=== PATIENT | male | born 1985 | race Caucasian/White ===

== ENCOUNTER 2019-01-28 04:50 | Emergency (ER) | payer OTHER ==
[2019-01-28 04:59] VITALS: BP 152/111
[2019-01-28] MEDS ORDERED: Heparin Sodium 5,000 Units/ML Vial IVPUSH ONE (05:05)
[2019-01-28] MEDS ORDERED: HYDROmorphone 1 MG/ML Syringe IVPUSH ONE ×2 (05:07→05:46)
[2019-01-28] MEDS ORDERED: Heparin Sodium 5,000 Units/ML Vial ONE (05:08)
[2019-01-28] MEDS ORDERED: Ondansetron 4 MG/2 ML SDV IVPUSH ONE (05:14)
--- NOTE | 2019-01-28 05:14 | EDM.PDOC ---
ED HPI GENERAL MEDICAL PROBLEM - General Chief Complaint: Chest Pain Stated Complaint: CHEST PAIN Time Seen by Provider: 01/28/19 05:01 Source of Information: Reports: Patient, Family (), RN Notes Reviewed History Limitations: Reports: No Limitations - History of Present Illness INITIAL COMMENTS - FREE TEXT/NARRATIVE: The patient states that he was woken up around 04:00 this morning with severe sharp/stabbing pain felt across his entire chest and down his right arm to about the elbow. The pain is made worse if he tries to breathe, but is still present if he doesn't breathe. Once in the ED, the patient stated that the pain was developing in his back, as well. No recent lower extremity edema. No prior similar symptoms. The patient did not take any [id number] or home remedies to treat his symptoms. The patient's PCP is Dr. Brandon Durham. Bilateral Chest Pain Score (Numeric/FACES): 9 - Related Data Allergies Allergy/AdvReac Type Severity Reaction Status Date / Time No Known Allergies Allergy Verified 01/28/19 04:56 Home Meds: Home Meds Levothyroxine 175 mcg PO ACBRK 05/03/16 [History] Past Medical History Gastrointestinal History: Reports: GERD, Hiatal Hernia Endocrine/Metabolic History: Reports: Hypothyroidism, Obesity/BMI 30+ - Infectious Disease History Infectious Disease History: Reports: Chicken Pox - Past Surgical History HEENT Surgical History: Reports: Oral Surgery (wisdom teeth extraction) GI Surgical History: Reports: EGD, Hernia, Abdominal (umbilical, as an infant) Musculoskeletal Surgical History: Reports: Other (See Below) (Right third finger repair) Social & Family History - Tobacco Use Smoking Status *Q: Current Every Day Smoker Years of Tobacco use: 20 Packs/Tins Daily: 1 Packs/Tins Daily Comment: Down from 1.5 ppd - Caffeine Use Caffeine Use: Reports: Energy Drinks - Alcohol Use Alcohol Use History: Yes Days Per Week of Alcohol Use: 6 Number of Drinks Per Day: 2 Total Drinks Per Week: 12 - Recreational Drug Use Recreational Drug Use: No - Living Situation & Occupation Living situation: Reports: , with Spouse Occupation: Employed (Owns [employer] business) ED ROS GENERAL - Review of Systems Review Of Systems: ROS reveals no pertinent complaints other than HPI. ED EXAM, GENERAL - Physical Exam Exam: See Below Exam Limited By: No Limitations General Appearance: Alert, WD/WN, Moderate Distress (appears dusky, very anxious , in pain) Eye Exam: Bilateral Eye: EOMI, Nystagmus Ears: Normal External Exam, Hearing Grossly Normal Nose: Normal Inspection Throat/Mouth: Normal Inspection, Normal Lips, Normal Voice, No Airway Compromise Head: Atraumatic, Normocephalic Neck: Normal Inspection, Full Range of Motion Respiratory/Chest: No Respiratory Distress, Lungs Clear, Normal Breath Sounds, No Accessory Muscle Use, Other (Anterior chest is tender, although the patient cannot say whether it is reproducible pain) Cardiovascular: Normal Peripheral Pulses, No Gallop, No JVD, No Murmur, No Rub, Tachycardia, Irregularly Irregular Peripheral Pulses: 4+: Radial (L), Radial (R) GI/Abdominal: Normal Bowel Sounds, Soft, Non-Tender, No Organomegaly, No Distention, No Abnormal Bruit, No Mass, Other (Obese) (Male) Exam: Deferred Rectal (Males) Exam: Deferred Back Exam: Normal Inspection, Full Range of Motion, NT Extremities: Normal Inspection, Normal Range of Motion, Normal Capillary Refill Neurological: Alert, Oriented, Normal Cognition, No Motor/Sensory Deficits Psychiatric: Anxious Skin Exam: Warm, Dry, Intact, No Rash, Other (dusky appearance) EKG INTERPRETATION EKG Date: 01/28/19 Time: 04:56 Rhythm: Other (Sinus tachycardia with several PVCs) Rate (Beats/Min): 109 [place]: Other (Posterior axis - either far RAD or far LAD) P-Wave: Enlarged (+PAVEL, +/- KATERYNA) QRS: Other (Late transition) ST-T: Normal QT: Prolonged (QTc 502 ms) Comparison: No Change (08/05/2018) Course - Vital Signs Last Recorded V/S: Last Vital Signs Temp 36.3 C 01/28/19 04:57 Pulse 102 H 01/28/19 04:57 Resp 19 01/28/19 04:57 BP 152/111 H 01/28/19 04:57 Pulse Ox 88 L 01/28/19 05:20 - Orders/Labs/Meds Orders: Active Orders 24 hr Category Date Time Status EKG Documentation Completion [RC] STAT Care 01/28/19 05:05 Active Oxygen Therapy [RC] ASDIRECTED Care 01/28/19 05:57 Active Chest 1V-Tube Placement Chk NC [CR] Routine Exams 01/28/19 06:00 Taken Chest Abdomen Pelvis w Cont [CT] Stat Exams 01/28/19 05:13 Taken Heparin Sodium/D5W [Heparin 25,000 Units in D5W 500 ML] Med 01/28/19 05:15 Active 25,000 units in 500 ml IV TITRATE Sodium Chloride 0.9% [Normal Saline] 1,000 ml Med 01/28/19 05:15 Active IV ASDIRECTED NG [Nasogastric Orogastric Tube Insertion] [OM.PC] Oth 01/28/19 06:04 Ordered Routine Medication Orders Heparin Sodium/Dextrose (Heparin 25,000 Units In D5w 500 Ml) 25,000 units in 500 mls @ 26 mls/hr IV TITRATE ANALIA; Protocol Sodium Chloride (Normal Saline) 1,000 mls @ 150 mls/hr IV ASDIRECTED ANALIA Last Admin: 01/28/19 05:12 Dose: 150 mls/hr Labs: Laboratory Tests 01/28/19 01/28/19 01/28/19 Range/Units 05:00 05:00 05:00 WBC 11.61 H (4.23-9.07) K/mm3 RBC 5.97 (4.63-6.08) M/mm3 Hgb 19.2 H (13.7-17.5) gm/L Hct 58.0 H (40.1-51.0) % MCV 97.2 H (79.0-92.2) fl MCH 32.2 (25.7-32.2) pg MCHC 33.1 (32.2-35.5) g/dl RDW Std Deviation 52.1 H (35.1-43.9) fL Plt Count 179 (163-337) K/mm3 MPV 11.7 (9.4-12.3) fl Neutrophils % (Manual) 72 H (40-60) % Band Neutrophils % 0 (0-10) % Lymphocytes % (Manual) 25 (20-40) % Atypical Lymphs % 0 % Immat Monocytes % (Man) 0 Monocytes % (Manual) 2 (2-10) % Eosinophils % (Manual) 1 (0.8-7.0) % Basophils % (Manual) 0 L (0.2-1.2) Metamyelocytes % 0 Myelocytes % 0 Promyelocytes % 0 Blast Cells % 0 Plasma Cell % (Manual) 0 Nucleated RBCs 0.0 % Platelet Estimate Adequate RBC Morph Comment Normal PT 10.3 (9.5-12.1) SECONDS INR 0.94 APTT 31 (24-31) SECONDS Puncture Site ABG pH (7.35-7.45) ABG pCO2 (35.0-45.0) mmHg ABG pO2 (80.0-100.0) mmHg ABG HCO3 (22.0-26.0) meq/L ABG O2 Saturation (96.0-97.0) % ABG Base Excess (-2-2.0) Aba Test A-a Gradient mmHg O2 Delivery Device FiO2 (21.00-100.00) % Sodium 141 (136-145) mEq/L Potassium 4.2 (3.5-5.1) mEq/L Chloride 103 (98-107) mEq/L Carbon Dioxide 32 (21-32) mEq/L Anion Gap 10.2 (5-15) BUN 10 (7-18) mg/dL Creatinine 1.0 (0.7-1.3) mg/dL Est Cr Clr Drug Dosing 103.10 mL/min Estimated GFR (MDRD) > 60 (>60) mL/min BUN/Creatinine Ratio 10.0 L (14-18) Glucose 96 (74-106) mg/dL Calcium 9.5 (8.5-10.1) mg/dL Total Bilirubin 0.7 (0.2-1.0) mg/dL AST 24 (15-37) U/L ALT 35 (16-63) U/L Alkaline Phosphatase 74 (46-116) U/L Troponin I < 0.017 (0.00-0.056) ng/mL Total Protein 8.4 H (6.4-8.2) g/dl Albumin 4.4 (3.4-5.0) g/dl Globulin 4.0 gm/dL Albumin/Globulin Ratio 1.1 (1-2) 01/28/19 Range/Units 05:18 WBC (4.23-9.07) K/mm3 RBC (4.63-6.08) M/mm3 Hgb (13.7-17.5) gm/L Hct (40.1-51.0) % MCV (79.0-92.2) fl MCH (25.7-32.2) pg MCHC (32.2-35.5) g/dl RDW Std Deviation (35.1-43.9) fL Plt Count (163-337) K/mm3 MPV (9.4-12.3) fl Neutrophils % (Manual) (40-60) % Band Neutrophils % (0-10) % Lymphocytes % (Manual) (20-40) % Atypical Lymphs % % Immat Monocytes % (Man) Monocytes % (Manual) (2-10) % Eosinophils % (Manual) (0.8-7.0) % Basophils % (Manual) (0.2-1.2) Metamyelocytes % Myelocytes % Promyelocytes % Blast Cells % Plasma Cell % (Manual) Nucleated RBCs % Platelet Estimate RBC Morph Comment PT (9.5-12.1) SECONDS INR APTT (24-31) SECONDS Puncture Site Rt radial ABG pH 7.32 L (7.35-7.45) ABG pCO2 55.9 H (35.0-45.0) mmHg ABG pO2 40.0 L (80.0-100.0) mmHg ABG HCO3 27.9 H (22.0-26.0) meq/L ABG O2 Saturation 68.5 L (96.0-97.0) % ABG Base Excess 0.6 (-2-2.0) Aba Test Positive A-a Gradient 24 mmHg O2 Delivery Device Room air FiO2 21.00 (21.00-100.00) % Sodium (136-145) mEq/L Potassium (3.5-5.1) mEq/L Chloride (98-107) mEq/L Carbon Dioxide (21-32) mEq/L Anion Gap (5-15) BUN (7-18) mg/dL Creatinine (0.7-1.3) mg/dL Est Cr Clr Drug Dosing mL/min Estimated GFR (MDRD) (>60) mL/min BUN/Creatinine Ratio (14-18) Glucose (74-106) mg/dL Calcium (8.5-10.1) mg/dL Total Bilirubin (0.2-1.0) mg/dL AST (15-37) U/L ALT (16-63) U/L Alkaline Phosphatase (46-116) U/L Troponin I (0.00-0.056) ng/mL Total Protein (6.4-8.2) g/dl Albumin (3.4-5.0) g/dl Globulin gm/dL Albumin/Globulin Ratio (1-2) Meds: Medications Generic Name Dose Route Start Last Admin Trade Name Freq PRN Reason Stop Dose Admin Heparin Sodium/Dextrose 25,000 units in 500 mls @ 26 mls/hr 01/28/19 05:15 Heparin 25,000 Units In D5w 500 Ml IV TITRATE ANALIA Protocol 1,300 UNITS/HR Sodium Chloride 1,000 mls @ 150 mls/hr 01/28/19 05:15 01/28/19 05:12 Normal Saline IV 150 mls/hr ASDIRECTED ANALIA Administration Discontinued Medications Generic Name Dose Route Start Last Admin Trade Name Freq PRN Reason Stop Dose Admin Heparin Sodium (Porcine) 5,000 units 01/28/19 05:05 Heparin Sodium IVPUSH 01/28/19 05:06 ONETIME ONE Heparin Sodium (Porcine) Confirm 01/28/19 05:08 01/28/19 05:13 Heparin Sodium Administered 01/28/19 05:09 Not Given Dose 5,000 units .ROUTE .STK-MED ONE Hydromorphone HCl 1 mg 01/28/19 05:07 01/28/19 05:11 Dilaudid IVPUSH 01/28/19 05:08 1 mg ONETIME ONE Administration Hydromorphone HCl 1 mg 01/28/19 05:46 01/28/19 05:50 Dilaudid IVPUSH 01/28/19 05:47 1 mg ONETIME ONE Administration Ondansetron HCl 4 mg 01/28/19 05:14 Zofran IVPUSH 01/28/19 05:15 ONETIME ONE - Re-Assessments/Exams Free Text/Narrative Re-Assessment/Exam: 01/28/19 05:14 As per the HPI, the patient is complaining of pain across his chest and down his right upper extremity to about the elbow. He looks dusky, and his oxygen saturation is decreased. He has numerous PVCs on his ECG, although no ischemic changes. My biggest concern is that the patient is suffering from a pulmonary embolus, and I therefore ordered an empiric heparin bolus + drip, however, the patient then mentioned that the pain is going through to his back, raising the concern of an aortic dissection. I therefore instructed Brenna WALLACE to not start the heparin until we get the CT results, and I spoke to the quality assurance/r&d lab technician Chiki to let him know that I want to rule out not only a PE but an aortic dissection as well. Blood work has been ordered. In the meantime, the patient will receive Dilaudid, Zofran, and IV fluid. We will check flight availability. 01/28/19 05:35 Preliminary review of the CT scan indicates that the patient may have a large right paraesophageal herniation, with a sizable portion of the patient's stomach in the right chest. Notified that the helicopter is not able to fly to either [place] or [place]. 01/28/19 05:[address] Kun Mata, surgeon denture contour wire specialist, at 05:38. He will come to the ED to evaluate the patient. 01/28/19 05:42 The ABG represents an acute on chronic respiratory acidosis with hypoxemia. 01/28/19 06:06 Dr. 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 He recommended transfer to [place] for surgical repair. The above recommendation was discussed with the patient and his . They prefer [facility]. CT images were pushed to [facility] at 05:57. Case discussed with Karlee at [facility] at 05:58. Case then discussed with Dr. Mendoza, general surgeon at [facility], at 06: 02. She recommended that we place an NG tube. She agreed to the transfer of the patient to their ED. Karlee notified Dr. Bolivar, [facility] Emergency Physician, of the transfer, however, Dr. Mendoza will be the accepting physician. The patient will be transported by ground ambulance. 01/28/19 06:25 CT angiogram of the chest is read by [facility] as: 1. No thoracic aortic aneurysm or evidence of acute aortic pathology. No evidence of pulmonary embolism. 2. New multiple small nodules throughout both lungs. Differential considerations include atypical pneumonia and less likely neoplastic process such as metastases or lymphoma. Follow-up suggested. 3. Large hiatal hernia. CT angiogram of the abdomen and pelvis is read by [facility] as: 1. No acute findings. No abdominal aortic aneurysm or evidence of acute aortic pathology. 2. Hepatic steatosis. Post-NG tube placement portable chest radiograph appears to demonstrate the tip of the NG tube within the esophagus, not likely in the herniated stomach. The cardiac silhouette is within normal limits. No pulmonary vascular congestion. No pleural effusions. No focal infiltrate. No pneumothorax. Large right hiatal hernia noted in the right chest. Formal read per the Radiologist pending. Based on the chest x-ray results, I asked Brenna WALLACE to advance the NG tube a few inches. Departure - Departure Time of Disposition: 06:10 Disposition: DC/Tfer to [facility] 02 Reason for Transfer *Q: Other Condition: Fair Clinical Impression: Strangulated paraesophageal hernia Referrals: Brandon Durham MD [Primary Care Provider] - - My Orders Last 24 Hours: My Active Orders 01/28/19 05:05 EKG Documentation Completion [RC] STAT 01/28/19 05:13 Chest Abdomen Pelvis w Cont [CT] Stat 01/28/19 05:15 Heparin Sodium/D5W [Heparin 25,000 Units in D5W 500 ML] 25,000 units in 500 ml IV TITRATE Sodium Chloride 0.9% [Normal Saline] 1,000 ml IV ASDIRECTED 01/28/19 05:57 Oxygen Therapy [RC] ASDIRECTED 01/28/19 06:00 Chest 1V-Tube Placement Chk NC [CR] Routine 01/28/19 06:04 NG [Nasogastric Orogastric Tube Insertion] [OM.PC] Routine - Assessment/Plan Last 24 Hours: My Active Orders 01/28/19 05:05 EKG Documentation Completion [RC] STAT 01/28/19 05:13 Chest Abdomen Pelvis w Cont [CT] Stat 01/28/19 05:15 Heparin Sodium/D5W [Heparin 25,000 Units in D5W 500 ML] 25,000 units in 500 ml IV TITRATE Sodium Chloride 0.9% [Normal Saline] 1,000 ml IV ASDIRECTED 01/28/19 05:57 Oxygen Therapy [RC] ASDIRECTED 01/28/19 06:00 Chest 1V-Tube Placement Chk NC [CR] Routine 01/28/19 06:04 NG [Nasogastric Orogastric Tube Insertion] [OM.PC] Routine
[2019-01-28] MEDS ORDERED: Sodium Chloride 0.9% 1,000 ML IV SCH (05:15)
[2019-01-28] MEDS ORDERED: Heparin Sodium/D5W 25,000 UNITS/500 ML BAG IV SCH (05:15)
--- NOTE | 2019-01-29 13:29 | CR ---
Chest: Frontal view of the chest was obtained. Comparison: Prior chest CT performed earlier on the same day (5:23 AM). Previous chest x-ray of 05/03/16 is also available. Vague nodularity is seen within both sides of the chest which is more noticeable on recent chest CT and has been described on previous chest CT report. Large hiatal hernia is seen which is felt compatible with diaphragmatic hernia. Nasogastric tube is seen with the tip located within the mediastinum most likely within the intrathoracic stomach. Heart size is slightly generous but is felt to be accentuated from technique. Impression: 1. Tip of nasogastric tube within the mediastinum likely within the intrathoracic stomach. 2. Slight nodularity within both sides of the chest better seen and described on previous chest CT. Diagnostic code #3
--- NOTE | 2019-01-29 13:29 | CT ---
CT chest Technique: Multiple axial sections through the chest were obtained. Intravenous contrast was utilized. Comparison: Prior chest CT study of 08/05/18. Findings: Visualized pulmonary arteries show no filling defects to indicate pulmonary embolism. Aorta shows no aneurysm or dissection. No pericardial thickening is seen. Mediastinum and hilar regions show small normal-appearing lymph nodes. No axillary adenopathy is seen. Numerous nodules are identified throughout both lungs which show no calcifications. Diaphragmatic hernia seen posteriorly which contains stomach. This causes some compressive atelectasis within the right base. Bone window settings were reviewed which shows no acute osseous abnormality. Impression: 1. Numerous small nodules within both lungs. These findings are an interval change from previous exam. Differential includes atypical pneumonia as well as metastasis and lymphoma. 2. Diaphragmatic hernia is seen posteriorly containing stomach. 3. No additional abnormality is identified. Diagnostic code #9 I agree with preliminary report issued by [facility] ([facility] report finalized on 01/28/19, 7:[address] abdomen and pelvis Technique: Multiple axial sections were obtained from above the dome of the diaphragm inferiorly through the pubic symphysis. Intravenous contrast was utilized. No oral contrast has been given. Findings: Aorta shows no aneurysm or dissection. No focal stenosis is seen. Renal arteries appear within normal limits. Celiac axis and superior mesenteric arteries as well as inferior mesenteric arteries appear unremarkable. Incidental note of 2 right sided renal arteries. Common iliac arteries as well as internal and external iliac arteries appear within normal limits. Liver shows fatty infiltration without focal abnormality. Spleen appears within normal limits. Adrenal glands show no nodule. Pancreas is within normal limits. Gallbladder contains no calcified gallstones. No retroperitoneal adenopathy or mesenteric abnormalities are seen. No pelvic mass or adenopathy is seen. No free fluid or inflammatory change is seen. Minimal sigmoid diverticuli are seen. Appendix is seen and is normal in size. Bone window settings were reviewed which show no acute osseous abnormality. Impression: 1. Fatty infiltration within the liver. 2. No vascular abnormality is appreciated within the aorta or branch vessels. 3. Other incidental findings. Nothing acute is seen. Diagnostic code #2 I agree with preliminary report issued by [facility] ([facility] report finalized on 01/28/19, 7:09 AM Central Time.
== END 2019-01-28 06:51 ==
LOC: JD.ED 04:50
DX: K44.0 Diaphragmatic hernia with obstruction, without gangrene (principal); F17.210 Nicotine dependence, cigarettes, uncomplicated; Z79.899 Other long term (current) drug therapy
CPT/HCPCS: 36415; 36600; 71260; 74177; 80053; 82803; 84484; 85007; 85027; 85610; 85730; 93005; 96361; 96374; 96376; 99285; J1170; J7040; 93010; 94762

== ENCOUNTER 2021-02-20 19:20 | Inpatient (IN) | payer OTHER ==
[2021-02-20] MEDS ORDERED: Sodium Chloride 0.9% 1,000 ML IV ONE ×2 (20:18→23:40)
[2021-02-20] MEDS ORDERED: Sodium Chloride 0.9% 10 ML Syringe FLUSH PRN (20:18)
--- NOTE | 2021-02-20 20:28 | EDM.PDOC ---
<Omar Vizcaino - Last Filed: 02/21/21 07:02> ED HPI GENERAL MEDICAL PROBLEM - General Chief Complaint: Respiratory Problem Stated Complaint: headache chills chest tightness Time Seen by Provider: 02/20/21 19:56 - Related Data Allergies Allergy/AdvReac Type Severity Reaction Status Date / Time cat dander Allergy Itching Verified 02/21/21 10:44 Home Meds: Home Meds Pantoprazole Sodium [Protonix] 20 mg PO DAILY 02/20/21 [History] buPROPion [buPROPion XL] 150 mg PO DAILY 02/20/21 [History] FLUoxetine HCl [Fluoxetine HCl] 20 mg PO DAILY 02/21/21 [History] Acetaminophen [Tylenol] 650 mg PO Q4H PRN #20 tablet 02/23/21 [Rx] Acetaminophen/oxyCODONE [Percocet 325-5 MG] 1 tab PO Q6H PRN #20 tablet 02/23/21 [Rx] Azithromycin 500 mg PO DAILY #1 tablet 02/23/21 [Rx] Gabapentin [Neurontin] 100 mg PO BID #30 cap 02/23/21 [Rx] Levothyroxine 175 mcg PO ACBREAKFAST #20 tab 02/23/21 [Rx] Magnesium Oxide 400 mg PO DAILY #3 tablet 02/23/21 [Rx] Nicotine [Nicotine Patch] 21 mg TD DAILY #28 patch 02/23/21 [Rx] cephALEXin [Keflex] 500 mg PO Q8H #7 cap 02/23/21 [Rx] valACYclovir [Valtrex] 1,000 mg PO TID #15 tab 02/23/21 [Rx] Course - Re-Assessments/Exams Free Text/Narrative Re-Assessment/Exam: I was called to see the patient as he was having difficulty with just generalized aches and pains especially in his back. I did discuss this with the patient he thinks Tylenol works fine for him. At this point it looks like we have some hospital beds are staffing issue has been resolved so we can keep the patient here. I have updated the patient with this and he is pleased to be able to stay here. Patient's case was also discussed with Dr. Mendoza who is happy to accept the patient. 02/21/21 07:02 Departure - Departure Time of Disposition: 07:05 Disposition: Admitted As Inpatient 64 Clinical Impression: Hypomagnesemia Community acquired pneumonia Qualifiers: Laterality: left Lung location: lower lobe of lung Qualified Code(s): J18.9 - Pneumonia, unspecified organism - Discharge Information <John Simon - Last Filed: 02/26/21 08:06> ED HPI GENERAL MEDICAL PROBLEM - General Source of Information: Reports: Patient History Limitations: Reports: No Limitations - History of Present Illness INITIAL COMMENTS - FREE TEXT/NARRATIVE: Mr. López is a very pleasant 36-year-old gentleman who now presents to the ED after he developed generalized body aches, including his chest, with chills, a headache, and dyspnea around 17:00 this evening. He states that he coughed for about 15 to 20 minutes earlier today, but no other symptoms, including fever, nausea, vomiting, constipation, diarrhea, or urinary symptoms. 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 He underwent surgery, and had significant complications, including ARDS. He states that he was in a medically-induced coma for about a week. Here in the ED tonight, the patient is found to be tachycardic at 110 bpm. He is afebrile, although feels warm, and requested additional warm blankets, therefore is likely developing a fever. He was hypoxemic at 87% on room air, up to 93% on 2 L of oxygen per nasal cannula. He appears to be uncomfortable, although was not in acute distress. Prior to today, the patient denies having a recent fever, chills, sore throat, ear pain, nasal or sinus congestion, cough, dyspnea, chest pain, palpitations, nausea, vomiting, constipation, diarrhea, abdominal pain, urinary symptoms, recent weight gain or weight loss, recent bloody bowel movements or black bowel movements, recent joint aches, headaches, or rashes. The patient does not believe that he acquired COVID-19 during this pandemic, although he has not been vaccinated for it, either. The patient's PCP is Dr. Brandon Durham. Treatments SHERIFFS OFFICER: Reports: NSAIDS Upper Chest Pain Score (Numeric/FACES): 7 Past Medical History HEENT History: Reports: Allergic Rhinitis Respiratory History: Reports: Sleep Apnea (nightly CPAP) Gastrointestinal History: Reports: GERD, Hiatal Hernia Endocrine/Metabolic History: Reports: Hypothyroidism, Obesity/BMI 30+ - Infectious Disease History Infectious Disease History: Reports: Chicken Pox - Past Surgical History HEENT Surgical History: Reports: Naso-Sinus Surgery (repair of deviated septum), Oral Surgery (dental extractions) GI Surgical History: Reports: Colonoscopy (x 2 or 3), EGD (x 3 or 4), Hernia, Abdominal (umbilical, as an infant), Other (See Below) (Repair of paraesophageal hernia Jan 2019) Musculoskeletal Surgical History: Reports: Other (See Below) (Rt 3rd finger repair) Social & Family History - Tobacco Use Tobacco Use Status *Q: Current Every Day Tobacco User Years of Tobacco use: 22 Packs/Tins Daily: 1 Packs/Tins Daily Comment: Down from 1.5 ppd - Caffeine Use Caffeine Use: Reports: Energy Drinks - Alcohol Use Alcohol Use History: Yes Alcohol Use Frequency: Daily - Recreational Drug Use Recreational Drug Use: No - Living Situation & Occupation Living situation: Reports: , with Spouse Occupation: Employed (Owns [employer] business) ED ROS GENERAL - Review of Systems Review Of Systems: Comprehensive ROS is negative, except as noted in HPI. ED EXAM, GENERAL - Physical Exam Exam: See Below Exam Limited By: No Limitations General Appearance: Alert, WD/WN, Mild Distress (appears uncomfortable) Eye Exam: Bilateral Eye: EOMI, Normal Inspection Ears: Normal External Exam, Hearing Grossly Normal Nose: Normal Inspection Throat/Mouth: Normal Inspection, Normal Lips, Normal Voice, No Airway Compromise Head: Atraumatic, Normocephalic Neck: Normal Inspection, Full Range of Motion Respiratory/Chest: No Respiratory Distress, Lungs Clear, Normal Breath Sounds, No Accessory Muscle Use Cardiovascular: Normal Peripheral Pulses, No Gallop, No JVD, No Murmur, No Rub, Tachycardia (regular) Peripheral Pulses: 3+: Radial (L), Radial (R) GI/Abdominal: Normal Bowel Sounds, Soft, Non-Tender, No Organomegaly, No Distention, No Abnormal Bruit, No Mass Back Exam: Normal Inspection, Full Range of Motion, NT Extremities: Normal Inspection, Normal Range of Motion, Normal Capillary Refill Neurological: Alert, Oriented, Normal Cognition, No Motor/Sensory Deficits Psychiatric: Normal Affect Skin Exam: Warm, Dry, Intact, Normal Color, No Rash #1 Interpretation EKG Date: 02/20/21 Time: 19:39 Rhythm: Other (Sinus tachycardia) Rate (Beats/Min): 105 Pelzer: Normal P-Wave: Present QRS: Normal ST-T: Normal QT: Normal Comparison: Change From Previous EKG (Many PVCs seen 01/28/2019) Course - Vital Signs Last Recorded V/S: Last Vital Signs Temp 37.1 C 02/23/21 07:25 Pulse 95 02/23/21 07:24 Resp 20 02/23/21 07:24 BP 128/76 02/23/21 07:24 Pulse Ox 94 L 02/23/21 07:24 - Orders/Labs/Meds Labs: Laboratory Tests 02/20/21 02/20/21 02/20/21 Range/Units 20:20 20:30 21:30 WBC 19.08 H (4.23-9.07) K/mm3 RBC 4.79 (4.63-6.08) M/mm3 Hgb 15.1 D (13.7-17.5) gm/dl Hct 45.7 (40.1-51.0) % MCV 95.4 H (79.0-92.2) fl MCH 31.5 (25.7-32.2) pg MCHC 33.0 (32.2-35.5) g/dl RDW Std Deviation 49.7 H (35.1-43.9) fL Plt Count 189 (163-337) K/mm3 MPV 11.6 (9.4-12.3) fl Neutrophils % (Manual) 88 H (40-60) % Band Neutrophils % 4 (0-10) % Lymphocytes % (Manual) 3 L (20-40) % Atypical Lymphs % 0 % Monocytes % (Manual) 4 (2-10) % Eosinophils % (Manual) 1 (0.8-7.0) % Basophils % (Manual) 0 L (0.2-1.2) Platelet Estimate Adequate RBC Morph Comment Normal PT (9.7-12.0) SECONDS INR APTT (21.7-31.4) SECONDS D-Dimer, Quantitative (0.19-0.50) mg/L Puncture Site ABG pH (7.35-7.45) ABG pCO2 (35.0-45.0) mmHg ABG pO2 (80.0-100.0) mmHg ABG HCO3 (22.0-26.0) meq/L ABG O2 Saturation (96.0-97.0) % ABG Base Excess (-2-2.0) Aba Test A-a Gradient mmHg O2 Delivery Device Oxygen Flow Rate FiO2 (21.00-100.00) % Sodium (136-145) mEq/L Potassium (3.5-5.1) mEq/L Chloride (98-107) mEq/L Carbon Dioxide (21-32) mEq/L Anion Gap (5-15) BUN (7-18) mg/dL Creatinine (0.7-1.3) mg/dL Est Cr Clr Drug Dosing mL/min Estimated GFR (MDRD) (>60) mL/min BUN/Creatinine Ratio (14-18) Glucose (70-99) mg/dL Lactic Acid (0.4-2.0) mmol/L Calcium (8.5-10.1) mg/dL Magnesium (1.8-2.4) mg/dL Total Bilirubin (0.2-1.0) mg/dL AST (15-37) U/L ALT (16-63) U/L Alkaline Phosphatase (46-116) U/L Troponin I (0.00-0.056) ng/mL C-Reactive Protein (<1.0) mg/dL NT-Pro-B Natriuret Pep (0-125) pg/mL Total Protein (6.4-8.2) g/dl Albumin (3.4-5.0) g/dl Globulin gm/dL Albumin/Globulin Ratio (1-2) Urine Color Yellow (Yellow) Urine Appearance Clear (Clear) Urine pH 6.0 (5.0-8.0) Ur Specific [place] 1.025 (1.005-1.030) Urine Protein Negative (Negative) Urine Glucose (UA) Negative (Negative) Urine Ketones Negative (Negative) Urine Occult Blood Negative (Negative) Urine Nitrite Negative (Negative) Urine Bilirubin Negative (Negative) Urine Urobilinogen 0.2 (0.2-1.0) Ur Leukocyte Esterase Negative (Negative) Influenza Type A RNA Negative (NEGATIVE) Influenza Type B RNA Negative (NEGATIVE) SARS-CoV-2 RNA (JERARDO) Negative (NEGATIVE) 02/20/21 02/20/21 02/20/21 Range/Units 21:30 21:30 21:30 WBC (4.23-9.07) K/mm3 RBC (4.63-6.08) M/mm3 Hgb (13.7-17.5) gm/dl Hct (40.1-51.0) % MCV (79.0-92.2) fl MCH (25.7-32.2) pg MCHC (32.2-35.5) g/dl RDW Std Deviation (35.1-43.9) fL Plt Count (163-337) K/mm3 MPV (9.4-12.3) fl Neutrophils % (Manual) (40-60) % Band Neutrophils % (0-10) % Lymphocytes % (Manual) (20-40) % Atypical Lymphs % % Monocytes % (Manual) (2-10) % Eosinophils % (Manual) (0.8-7.0) % Basophils % (Manual) (0.2-1.2) Platelet Estimate RBC Morph Comment PT 10.9 (9.7-12.0) SECONDS INR 1.02 APTT 30.7 (21.7-31.4) SECONDS D-Dimer, Quantitative < 0.19 L (0.19-0.50) mg/L Puncture Site ABG pH (7.35-7.45) ABG pCO2 (35.0-45.0) mmHg ABG pO2 (80.0-100.0) mmHg ABG HCO3 (22.0-26.0) meq/L ABG O2 Saturation (96.0-97.0) % ABG Base Excess (-2-2.0) Aba Test A-a Gradient mmHg O2 Delivery Device Oxygen Flow Rate FiO2 (21.00-100.00) % Sodium 137 (136-145) mEq/L Potassium 3.9 (3.5-5.1) mEq/L Chloride 101 (98-107) mEq/L Carbon Dioxide 26 (21-32) mEq/L Anion Gap 13.9 (5-15) BUN 17 (7-18) mg/dL Creatinine 1.1 (0.7-1.3) mg/dL Est Cr Clr Drug Dosing 91.05 mL/min Estimated GFR (MDRD) > 60 (>60) mL/min BUN/Creatinine Ratio 15.5 (14-18) Glucose 108 H (70-99) mg/dL Lactic Acid 1.3 (0.4-2.0) mmol/L Calcium 8.9 (8.5-10.1) mg/dL Magnesium 1.6 L (1.8-2.4) mg/dL Total Bilirubin 0.5 (0.2-1.0) mg/dL AST 29 (15-37) U/L ALT 48 (16-63) U/L Alkaline Phosphatase 58 (46-116) U/L Troponin I < 0.017 (0.00-0.056) ng/mL C-Reactive Protein 0.8 (<1.0) mg/dL NT-Pro-B Natriuret Pep (0-125) pg/mL Total Protein 7.3 (6.4-8.2) g/dl Albumin 3.9 (3.4-5.0) g/dl Globulin 3.4 gm/dL Albumin/Globulin Ratio 1.2 (1-2) Urine Color (Yellow) Urine Appearance (Clear) Urine pH (5.0-8.0) Ur Specific [place] (1.005-1.030) Urine Protein (Negative) Urine Glucose (UA) (Negative) Urine Ketones (Negative) Urine Occult Blood (Negative) Urine Nitrite (Negative) Urine Bilirubin (Negative) Urine Urobilinogen (0.2-1.0) Ur Leukocyte Esterase (Negative) Influenza Type A RNA (NEGATIVE) Influenza Type B RNA (NEGATIVE) SARS-CoV-2 RNA (JERARDO) (NEGATIVE) 02/20/21 02/20/21 Range/Units 21:30 22:58 WBC (4.23-9.07) K/mm3 RBC (4.63-6.08) M/mm3 Hgb (13.7-17.5) gm/dl Hct (40.1-51.0) % MCV (79.0-92.2) fl MCH (25.7-32.2) pg MCHC (32.2-35.5) g/dl RDW Std Deviation (35.1-43.9) fL Plt Count (163-337) K/mm3 MPV (9.4-12.3) fl Neutrophils % (Manual) (40-60) % Band Neutrophils % (0-10) % Lymphocytes % (Manual) (20-40) % Atypical Lymphs % % Monocytes % (Manual) (2-10) % Eosinophils % (Manual) (0.8-7.0) % Basophils % (Manual) (0.2-1.2) Platelet Estimate RBC Morph Comment PT (9.7-12.0) SECONDS INR APTT (21.7-31.4) SECONDS D-Dimer, Quantitative (0.19-0.50) mg/L Puncture Site Lt radial ABG pH 7.43 (7.35-7.45) ABG pCO2 41.0 (35.0-45.0) mmHg ABG pO2 57.0 L (80.0-100.0) mmHg ABG HCO3 26.9 H (22.0-26.0) meq/L ABG O2 Saturation 85.8 L (96.0-97.0) % ABG Base Excess 2.8 H (-2-2.0) Aba Test Positive A-a Gradient 42 mmHg O2 Delivery Device Nasal cannula Oxygen Flow Rate 2.0 FiO2 28.00 (21.00-100.00) % Sodium (136-145) mEq/L Potassium (3.5-5.1) mEq/L Chloride (98-107) mEq/L Carbon Dioxide (21-32) mEq/L Anion Gap (5-15) BUN (7-18) mg/dL Creatinine (0.7-1.3) mg/dL Est Cr Clr Drug Dosing mL/min Estimated GFR (MDRD) (>60) mL/min BUN/Creatinine Ratio (14-18) Glucose (70-99) mg/dL Lactic Acid (0.4-2.0) mmol/L Calcium (8.5-10.1) mg/dL Magnesium (1.8-2.4) mg/dL Total Bilirubin (0.2-1.0) mg/dL AST (15-37) U/L ALT (16-63) U/L Alkaline Phosphatase (46-116) U/L Troponin I (0.00-0.056) ng/mL C-Reactive Protein (<1.0) mg/dL NT-Pro-B Natriuret Pep 81 (0-125) pg/mL Total Protein (6.4-8.2) g/dl Albumin (3.4-5.0) g/dl Globulin gm/dL Albumin/Globulin Ratio (1-2) Urine Color (Yellow) Urine Appearance (Clear) Urine pH (5.0-8.0) Ur Specific [place] (1.005-1.030) Urine Protein (Negative) Urine Glucose (UA) (Negative) Urine Ketones (Negative) Urine Occult Blood (Negative) Urine Nitrite (Negative) Urine Bilirubin (Negative) Urine Urobilinogen (0.2-1.0) Ur Leukocyte Esterase (Negative) Influenza Type A RNA (NEGATIVE) Influenza Type B RNA (NEGATIVE) SARS-CoV-2 RNA (JERARDO) (NEGATIVE) Meds: Medications Discontinued Medications Generic Name Dose Route Start Last Admin Trade Name Freq PRN Reason Stop Dose Admin Acetaminophen 975 mg 02/21/21 06:53 02/21/21 06:58 Acetaminophen 325 Mg Tab PO 02/21/21 06:54 975 mg NOW ONE Administration Acetaminophen 650 mg 02/21/21 09:11 02/22/21 19:23 Acetaminophen 325 Mg Tab PO 650 mg Q4H PRN Administration Pain (Mild 1-3)/fever Hydrocodone Bitart/Acetaminophen 1 tab 02/21/21 10:29 02/21/21 12:08 Acetaminophen/Hydrocodone 325-5 Mg Tab PO 1 tab Q4H PRN Administration Pain (moderate 4-6) Hydrocodone Bitart/Acetaminophen 1 - 2 tab 02/21/21 12:49 02/22/21 04:42 Acetaminophen/Hydrocodone 325-5 Mg Tab PO 1 tab Q4H PRN Administration Pain (moderate 4-6) Albuterol/Ipratropium 3 ml 02/21/21 09:11 Albuterol/Ipratropium 3.0-0.5 Mg/3 Ml Neb Soln NEB Q4H PRN Shortness Of Breath/wheezing Bupropion HCl 150 mg 02/21/21 10:00 02/23/21 08:06 Bupropion 150 Mg Tab.Er PO 150 mg DAILY ANALIA Administration Enoxaparin Sodium 40 mg 02/21/21 18:45 02/23/21 08:07 Enoxaparin 40 Mg/0.4 Ml Syringe SUBCUT 40 mg DAILY ANALIA Administration Fluoxetine HCl 20 mg 02/22/21 09:00 02/23/21 08:05 Fluoxetine 20 Mg Cap PO 20 mg DAILY ANALIA Administration Gabapentin 100 mg 02/21/21 19:30 02/23/21 08:07 Gabapentin 100 Mg Cap PO 100 mg BID ANALIA Administration Sodium Chloride 1,000 mls @ 999 mls/hr 02/20/21 20:18 02/20/21 20:38 Normal Saline IV 02/20/21 21:18 999 mls/hr BOLUS ONE Administration Protocol Magnesium Sulfate 2 gm in 50 mls @ 25 mls/hr 02/20/21 22:24 02/20/21 22:36 Magnesium Sulfate In Water 2 Gm/50 Ml IV 02/21/21 00:23 25 mls/hr ONETIME ONE Administration Ceftriaxone Sodium 2 gm/ 100 mls @ 200 mls/hr 02/20/21 23:02 02/21/21 00:23 Sodium Chloride IV 02/20/21 23:31 200 mls/hr ONETIME STA Administration Azithromycin 500 mg/ Sodium 250 mls @ 250 mls/hr 02/20/21 23:04 02/20/21 23:14 Chloride IV 02/21/21 00:03 250 mls/hr ONETIME STA Administration Sodium Chloride 1,000 mls @ 999 mls/hr 02/20/21 23:40 02/21/21 00:23 Normal Saline IV 02/21/21 00:40 999 mls/hr ONETIME ONE Administration Azithromycin 500 mg/ Sodium 250 mls @ 250 mls/hr 02/21/21 23:00 02/22/21 23:30 Chloride IV 250 mls/hr Q24H ANALIA Administration Ceftriaxone Sodium 2 gm/ 100 mls @ 200 mls/hr 02/21/21 23:00 02/22/21 23:26 Sodium Chloride IV 200 mls/hr Q24H ANALIA Administration Magnesium Sulfate 2 gm in 50 mls @ 25 mls/hr 02/22/21 09:00 02/22/21 09:31 Magnesium Sulfate In Water 2 Gm/50 Ml IV 02/22/21 10:59 25 mls/hr ONETIME ONE Administration Ketorolac Tromethamine 30 mg 02/22/21 07:26 02/22/21 20:45 Ketorolac 30 Mg/Ml Sdv IVPUSH 30 mg Q6H PRN Administration Pain (moderate 4-6) Levothyroxine Sodium 75 mcg 02/22/21 06:00 Levothyroxine 75 Mcg Tab PO ACBRK ANALIA Levothyroxine Sodium 100 mcg 02/22/21 06:00 Levothyroxine 100 Mcg Tab PO ACBRK ANALIA Levothyroxine Sodium 200 mcg 02/22/21 06:00 02/23/21 06:25 Levothyroxine 200 Mcg Tab PO 200 mcg ACBREAKFAST ANALIA Administration Magnesium Oxide 400 mg 02/23/21 09:00 02/23/21 10:06 Magnesium Oxide 400 Mg Tab PO 400 mg DAILY ANALIA Administration Miscellaneous Information 1 ea 02/22/21 09:00 02/23/21 08:24 Remove Nicotine Patch TRDERM Not Given DAILY ANALIA Nicotine 21 mg 02/21/21 09:30 02/23/21 08:08 Nicotine 21 Mg/24 Hr Patch TRDERM Not Given DAILY ANALIA Ondansetron HCl 4 mg 02/21/21 09:11 Ondansetron 4 Mg/2 Ml Sdv IV Q6H PRN Nausea/Vomiting Oxycodone/Acetaminophen 1 - 2 tab 02/22/21 07:26 02/23/21 06:25 Acetaminophen/Oxycodone 325-5 Mg Tab PO 2 tab Q4H PRN Administration Pain (severe 7-10) Pantoprazole Sodium 20 mg 02/21/21 10:00 02/23/21 08:04 Pantoprazole 40 Mg Tab.Cr PO 20 mg DAILY ANALIA Administration Sodium Chloride 10 ml 02/20/21 20:18 02/20/21 20:38 Sodium Chloride 0.9% 10 Ml Syringe FLUSH 10 ml ASDIRECTED PRN Administration Keep Vein Open Valacyclovir HCl 1,000 mg 02/21/21 15:00 02/23/21 08:06 Valacyclovir 1,000 Mg Tab PO 02/28/21 15:01 1,000 mg TID ANALIA Administration - Re-Assessments/Exams Free Text/Narrative Re-Assessment/Exam: 02/20/21 20:25 As above, the patient had about a 15 to 20-minute episode of coughing earlier today, then developed generalized body aches, including his chest, with chills, a headache, and dyspnea around 17:00 this evening. No fever, although the patient feels warm, and I suspect that he will develop a fever shortly. No gastrointestinal or genitourinary symptoms, and his physical exam is grossly unremarkable, although he is hypoxemic. The patient may meet sepsis criteria, therefore I ordered a sepsis bundle, along with a swab for the SARS-CoV-2 virus and influenza A + B viruses. In the meantime, the patient will be given a 1 L bolus of NS. 02/20/21 21:34 Portable chest radiograph appears to be grossly unremarkable. The cardiac silhouette is within normal limits. No pulmonary vascular congestion. No pleural effusions seen on this AP view. There is a possibility of some atelectasis versus infiltrate at the left base, although I feel this is most likely due to body habitus. No pneumothorax. I have asked to have the patient's portable chest x-ray read by the Radiologist. 02/20/21 22:24 The patient's CBC is remarkable for leukocytosis of 19.08, but with only 4% bandemia, and the remainder of his CBC being unremarkable. His CMP is remarkable for slight hyperglycemia of 108, and is otherwise unremarkable. His magnesium level is mildly depressed at 1.6. His lactic acid level is within normal limits at 1.3. His CRP is within normal limits at 0.8. His troponin is undetectably low. His pro-BNP is within normal limits at 81. His D-dimer is undetectably low. His coags are within normal limits. His urinalysis is unremarkable. His swab for the SARS-CoV-2 virus and influenza A + B viruses is negative. Notified that because of a sick , the respiratory therapist is occupied, therefore there will be a delay in obtaining the ABG. Based on the above, I have ordered a 2 g Mg-rider. 02/20/21 22:59 Portable chest x-ray is read by [facility] as "Subtle increased density at the left lung base in the setting of an elevated left hemidiaphragm. Differential diagnosis includes passive atelectasis and mild pneumonia." His ABG demonstrates a primary metabolic alkalosis with appropriately compensated respiratory acidosis. Based on the above, I will treat the patient for community-acquired pneumonia with IV Rocephin and azithromycin. Because the patient is hypoxemic, he will require admission to the hospital. Unfortunate, this facility has no beds available, therefore he will require transfer to [place]. 02/20/21 23:15 Test results and my recommendation to transfer to [place] discussed with the patient. He reluctantly agreed. 02/20/21 23:25 Case discussed with Cece at [facility] call at 23:16. Case then discussed with Dr. Saravia, Hospitalist at [facility], at 23:23. She accepted the patient for direct admission to their facility. The patient will be transported by ground ambulance. 02/20/21 23:40 Notified that there are no ambulance is available to transport the patient at this time, therefore we will keep the patient here in the ED until transportation is available. There may, however, be bed availability at this facility in the morning. Departure - Departure Condition: Good - Discharge Information *PRESCRIPTION DRUG MONITORING PROGRAM REVIEWED*: Not Applicable *COPY OF PRESCRIPTION DRUG MONITORING REPORT IN PATIENT EDISON: Not Applicable Sepsis Event Note (ED) - Evaluation Sepsis Screening Result: Possible Sepsis Risk
[2021-02-20 21:06] LABS: CORONAVIRUS COVID-19 NAA NEGATIVE (NEGATIVE)
[2021-02-20] MEDS ORDERED: Magnesium Sulfate/Water 2 GM/50 ML BAG IV ONE (22:24)
[2021-02-20] MEDS ORDERED: cefTRIAXone 2 GM in Sodium Chloride 0.9% 100 ML IV STA (23:02)
[2021-02-20] MEDS ORDERED: Azithromycin 500 MG in Sodium Chloride 0.9% 250 ML IV STA (23:04)
[2021-02-21] MEDS ORDERED: Acetaminophen 325 MG Tab PO ONE (06:53)
--- NOTE | 2021-02-21 08:03 | PCM.HP.2 ---
H&P History of Present Illness - General Date of Service: 02/21/21 Admit Problem/Dx: Pneumonia Source of Information: Patient, Old Records, Provider, RN, RN Notes Reviewed History Limitations: Reports: No Limitations - History of Present Illness Initial Comments - Free Text/Narative: This is a 36-year-old male who presents to ED on the evening of 02/20/2021 with a headache, chills, generalized myalgias, and dyspnea which began earlier in the day around 1700. He reported a coughing fit which lasted 15 to 20 minutes and stated he believes he had a fever, although he did not ever utilize a thermomete r to check it. 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 He reports that he was in a medically induced coma for about a week and did suffer from A RDS. No known recent sick contacts. He does not believe he had Covid during this pandemic and was not vaccinated for it. In the ED he is tachycardic at 110 bpm and hypoxemic with 87% saturations on room air. This does increase to 93% on 2 L of oxygen. Temperature is 100.1 but he does feel warm. He is requesting a temperature be increased in his room and states he is chilled. Blood pressure is 124/71. Respirations 18. Twelve-lead EKG is obtained showing a sinus tachycardia 105 bpm. Compared with EKG from 01/28/2019 which showed many PVCs and none are noted now. Labs were obtained showing a leukocytosis of 19.08. Hemoglobin 15.1. Platelet 189,000. 4% band neutrophils noted. INR is 1.02. aPTT is 30.7. D-dimer is less than 0.19. Sodium 137. Potassium 3.9. Chloride 101. Carbon dioxide 26. Anion gap 13.9. BUN is 17. Creatinine 1.1. GFR greater than 60. Glucose is 108. Lactic acid is 1.3. Calcium 8.9. Magnesium 1.6. Total bilirubin 0.5. AST is 29, ALT 48, alkaline phosphatase 58. Troponin less than 0.017. CRP 0.9. Albumin is 3.9. ABGs obtained in the left radial showing a pH of 7.43. PCO2 41.0. PO2 of 57.0. HCO3 of 26.9. O2 saturations 85.8%. Base excess is 2.8. AA gradient is 42. This is obtained on 2 L via nasal cannula. proBNP is 81. UA is negative. Influenza a and B are both negative. SARS Covid 2 RNA is negative. Blood cultures are pending. He is on 2 L of oxygen with saturations in the low 90s. He is given 2 g Rocephin and 500 mg azithromycin in the ED. He is given several fluid boluses. Chest x-ray is obtained showing a slight increased density within the left lung base most likely represent area of atelectasis or small area of pneumonia. Initially our facility was on diversion and plan was to transfer the patient out however there was no ambulance is available so the patient remained in the ED overnight. In the morning our facility was taken off of diversion and patient was subsequently admitted for management of his pneumonia. Just prior to being admitted the patient noted a rash on his right lower leg which is very painful. The patient has a history of herpes zoster in the past and reports this is similar to his prior rash and pain. Skin exam reveals large warm reddened and tender area to anterior aspect of right leg. No vesicles are noted in this area. Ther are also areas of rash in right groin region with early vesicles noted. He carries a history of sleep apnea on nightly CPAP, GERD, hiatal hernia, hypothyroidism, obesity. He is a current pack-a-day smoker. His primary care provider is Dr. Moya. He is a full code. Upper Chest Pain Score (Numeric/FACES): 7 - Related Data Allergies/Adverse Reactions: Allergies Allergy/AdvReac Type Severity Reaction Status Date / Time cat dander Allergy Itching Verified 02/21/21 10:44 Home Medications: Home Meds Levothyroxine 175 mcg PO ACBRK 05/03/16 [History] Pantoprazole Sodium [Protonix] 20 mg PO DAILY 02/20/21 [History] buPROPion [buPROPion XL] 150 mg PO DAILY 02/20/21 [History] Past Medical History HEENT History: Reports: Allergic Rhinitis Other HEENT History: requires nasal surgery. Respiratory History: Reports: Sleep Apnea (nightly CPAP) Other Respiratory History: ARDS 2019 Gastrointestinal History: Reports: GERD, Hiatal Hernia Endocrine/Metabolic History: Reports: Hypothyroidism, Obesity/BMI 30+ Hematologic History: Reports: Anemia - Infectious Disease History Infectious Disease History: Reports: Chicken Pox - Past Surgical History HEENT Surgical History: Reports: Naso-Sinus Surgery (repair of deviated septum), Oral Surgery (dental extractions) GI Surgical History: Reports: Colonoscopy (x 2 or 3), EGD (x 3 or 4), Hernia, Abdominal (umbilical, as an infant), Other (See Below) (Repair of paraesophageal hernia Jan 2019) Musculoskeletal Surgical History: Reports: Other (See Below) (Rt 3rd finger repa ir) Social & Family History - Tobacco Use Tobacco Use Status *Q: Current Every Day Tobacco User Years of Tobacco use: 22 Packs/Tins Daily: 1 Second Hand Smoke Exposure: Yes - Caffeine Use Caffeine Use: Reports: Energy Drinks - Alcohol Use Number of Drinks Per Day: 4 - Recreational Drug Use Recreational Drug Use: No - Living Situation & Occupation Living situation: Reports: , with Spouse Occupation: Employed (Owns [employer]) H&P Review of Systems - Review of Systems: Review Of Systems: See Below General: Reports: Fever, Chills, Malaise, Weakness, Fatigue. Denies: Decreased Appetite, Weight Loss HEENT: Reports: No Symptoms. Denies: Headaches, Rhinitis, Sore Throat Pulmonary: Reports: Shortness of Breath, Cough. Denies: Wheezing, Pleuritic Chest Pain, Sputum, Hemoptysis Cardiovascular: Reports: Dyspnea on Exertion. Denies: Chest Pain, Palpitations, Edema Gastrointestinal: Reports: No Symptoms. Denies: Abdominal Pain, Constipation, Diarrhea, Nausea, Vomiting Genitourinary: Reports: No Symptoms. Denies: Pain Musculoskeletal: Reports: Back Pain, Muscle Pain (Generalized myalgias) Skin: Reports: No Symptoms. Denies: Cyanosis Psychiatric: Reports: No Symptoms Neurological: Reports: No Symptoms. Denies: Confusion, Dizziness, Headache, Numbness, Pre-Existing Deficit, Seizure, Syncope, Tingling, Difficulty Walking, Weakness, Gait Disturbance Hematologic/Lymphatic: Reports: No Symptoms Immunologic: Reports: No Symptoms Exam - Exam Exam: See Below - Vital Signs Vital Signs: Last Vital Signs Temp 100.4 F 02/21/21 06:58 Pulse 95 02/21/21 06:00 Resp 18 02/21/21 01:20 BP 124/71 02/20/21 22:00 Pulse Ox 90 L 02/21/21 06:00 Weight: 277 lb - Exam Quality Assessment: Supplemental Oxygen (2L), DVT Prophylaxis. No: Urinary Catheter General: Alert, Oriented, Cooperative. No: Mild Distress HEENT: Conjunctiva Clear, EACs Clear, Hearing Intact, Mucosa Moist & [place], Posterior Pharynx Clear Neck: Supple, Trachea Midline Lungs: Clear to Auscultation, Normal Respiratory Effort Cardiovascular: Regular Rate, Regular Rhythm GI/Abdominal Exam: Normal Bowel Sounds, Soft, Non-Tender, No Distention (Male) Exam: Deferred Rectal (Males) Exam: Deferred Back Exam: Normal Inspection, Full Range of Motion Extremities: Normal Inspection, Normal Range of Motion, Non-Tender, No Pedal Edema, Normal Capillary Refill Peripheral Pulses: 3+: Radial (L), Radial (R), Dorsalis Pedis (L), Dorsalis Pedis (R) Skin: Warm, Dry, Intact Neurological: Cranial Nerves Intact (Grossly ) Neuro Extensive - Mental Status: Alert, Oriented x3, Normal Mood/Affect - Patient Data Lab Results Last 24 hrs: Laboratory Results - last 24 hr 02/20/21 02/20/21 02/20/21 Range/Units 20:20 20:30 21:30 WBC 19.08 H (4.23-9.07) K/mm3 RBC 4.79 (4.63-6.08) M/mm3 Hgb 15.1 D (13.7-17.5) gm/dl Hct 45.7 (40.1-51.0) % MCV 95.4 H (79.0-92.2) fl MCH 31.5 (25.7-32.2) pg MCHC 33.0 (32.2-35.5) g/dl RDW Std Deviation 49.7 H (35.1-43.9) fL Plt Count 189 (163-337) K/mm3 MPV 11.6 (9.4-12.3) fl Neutrophils % (Manual) 88 H (40-60) % Band Neutrophils % 4 (0-10) % Lymphocytes % (Manual) 3 L (20-40) % Atypical Lymphs % 0 % Monocytes % (Manual) 4 (2-10) % Eosinophils % (Manual) 1 (0.8-7.0) % Basophils % (Manual) 0 L (0.2-1.2) Platelet Estimate Adequate RBC Morph Comment Normal PT (9.7-12.0) SECONDS INR APTT (21.7-31.4) SECONDS D-Dimer, Quantitative (0.19-0.50) mg/L Puncture Site ABG pH (7.35-7.45) ABG pCO2 (35.0-45.0) mmHg ABG pO2 (80.0-100.0) mmHg ABG HCO3 (22.0-26.0) meq/L ABG O2 Saturation (96.0-97.0) % ABG Base Excess (-2-2.0) Aba Test A-a Gradient mmHg O2 Delivery Device Oxygen Flow Rate FiO2 (21.00-100.00) % Sodium (136-145) mEq/L Potassium (3.5-5.1) mEq/L Chloride (98-107) mEq/L Carbon Dioxide (21-32) mEq/L Anion Gap (5-15) BUN (7-18) mg/dL Creatinine (0.7-1.3) mg/dL Est Cr Clr Drug Dosing mL/min Estimated GFR (MDRD) (>60) mL/min BUN/Creatinine Ratio (14-18) Glucose (70-99) mg/dL Lactic Acid (0.4-2.0) mmol/L Calcium (8.5-10.1) mg/dL Magnesium (1.8-2.4) mg/dL Total Bilirubin (0.2-1.0) mg/dL AST (15-37) U/L ALT (16-63) U/L Alkaline Phosphatase (46-116) U/L Troponin I (0.00-0.056) ng/mL C-Reactive Protein (<1.0) mg/dL NT-Pro-B Natriuret Pep (0-125) pg/mL Total Protein (6.4-8.2) g/dl Albumin (3.4-5.0) g/dl Globulin gm/dL Albumin/Globulin Ratio (1-2) Urine Color Yellow (Yellow) Urine Appearance Clear (Clear) Urine pH 6.0 (5.0-8.0) Ur Specific Marlow 1.025 (1.005-1.030) Urine Protein Negative (Negative) Urine Glucose (UA) Negative (Negative) Urine Ketones Negative (Negative) Urine Occult Blood Negative (Negative) Urine Nitrite Negative (Negative) Urine Bilirubin Negative (Negative) Urine Urobilinogen 0.2 (0.2-1.0) Ur Leukocyte Esterase Negative (Negative) Influenza Type A RNA Negative (NEGATIVE) Influenza Type B RNA Negative (NEGATIVE) SARS-CoV-2 RNA (JERARDO) Negative (NEGATIVE) 02/20/21 02/20/21 02/20/21 Range/Units 21:30 21:30 21:30 WBC (4.23-9.07) K/mm3 RBC (4.63-6.08) M/mm3 Hgb (13.7-17.5) gm/dl Hct (40.1-51.0) % MCV (79.0-92.2) fl MCH (25.7-32.2) pg MCHC (32.2-35.5) g/dl RDW Std Deviation (35.1-43.9) fL Plt Count (163-337) K/mm3 MPV (9.4-12.3) fl Neutrophils % (Manual) (40-60) % Band Neutrophils % (0-10) % Lymphocytes % (Manual) (20-40) % Atypical Lymphs % % Monocytes % (Manual) (2-10) % Eosinophils % (Manual) (0.8-7.0) % Basophils % (Manual) (0.2-1.2) Platelet Estimate RBC Morph Comment PT 10.9 (9.7-12.0) SECONDS INR 1.02 APTT 30.7 (21.7-31.4) SECONDS D-Dimer, Quantitative < 0.19 L (0.19-0.50) mg/L Puncture Site ABG pH (7.35-7.45) ABG pCO2 (35.0-45.0) mmHg ABG pO2 (80.0-100.0) mmHg ABG HCO3 (22.0-26.0) meq/L ABG O2 Saturation (96.0-97.0) % ABG Base Excess (-2-2.0) Aba Test A-a Gradient mmHg O2 Delivery Device Oxygen Flow Rate FiO2 (21.00-100.00) % Sodium 137 (136-145) mEq/L Potassium 3.9 (3.5-5.1) mEq/L Chloride 101 (98-107) mEq/L Carbon Dioxide 26 (21-32) mEq/L Anion Gap 13.9 (5-15) BUN 17 (7-18) mg/dL Creatinine 1.1 (0.7-1.3) mg/dL Est Cr Clr Drug Dosing 91.05 mL/min Estimated GFR (MDRD) > 60 (>60) mL/min BUN/Creatinine Ratio 15.5 (14-18) Glucose 108 H (70-99) mg/dL Lactic Acid 1.3 (0.4-2.0) mmol/L Calcium 8.9 (8.5-10.1) mg/dL Magnesium 1.6 L (1.8-2.4) mg/dL Total Bilirubin 0.5 (0.2-1.0) mg/dL AST 29 (15-37) U/L ALT 48 (16-63) U/L Alkaline Phosphatase 58 (46-116) U/L Troponin I < 0.017 (0.00-0.056) ng/mL C-Reactive Protein 0.8 (<1.0) mg/dL NT-Pro-B Natriuret Pep (0-125) pg/mL Total Protein 7.3 (6.4-8.2) g/dl Albumin 3.9 (3.4-5.0) g/dl Globulin 3.4 gm/dL Albumin/Globulin Ratio 1.2 (1-2) Urine Color (Yellow) Urine Appearance (Clear) Urine pH (5.0-8.0) Ur Specific Marlow (1.005-1.030) Urine Protein (Negative) Urine Glucose (UA) (Negative) Urine Ketones (Negative) Urine Occult Blood (Negative) Urine Nitrite (Negative) Urine Bilirubin (Negative) Urine Urobilinogen (0.2-1.0) Ur Leukocyte Esterase (Negative) Influenza Type A RNA (NEGATIVE) Influenza Type B RNA (NEGATIVE) SARS-CoV-2 RNA (JERARDO) (NEGATIVE) 02/20/21 02/20/21 Range/Units 21:30 22:58 WBC (4.23-9.07) K/mm3 RBC (4.63-6.08) M/mm3 Hgb (13.7-17.5) gm/dl Hct (40.1-51.0) % MCV (79.0-92.2) fl MCH (25.7-32.2) pg MCHC (32.2-35.5) g/dl RDW Std Deviation (35.1-43.9) fL Plt Count (163-337) K/mm3 MPV (9.4-12.3) fl Neutrophils % (Manual) (40-60) % Band Neutrophils % (0-10) % Lymphocytes % (Manual) (20-40) % Atypical Lymphs % % Monocytes % (Manual) (2-10) % Eosinophils % (Manual) (0.8-7.0) % Basophils % (Manual) (0.2-1.2) Platelet Estimate RBC Morph Comment PT (9.7-12.0) SECONDS INR APTT (21.7-31.4) SECONDS D-Dimer, Quantitative (0.19-0.50) mg/L Puncture Site Lt radial ABG pH 7.43 (7.35-7.45) ABG pCO2 41.0 (35.0-45.0) mmHg ABG pO2 57.0 L (80.0-100.0) mmHg ABG HCO3 26.9 H (22.0-26.0) meq/L ABG O2 Saturation 85.8 L (96.0-97.0) % ABG Base Excess 2.8 H (-2-2.0) Aba Test Positive A-a Gradient 42 mmHg O2 Delivery Device Nasal cannula Oxygen Flow Rate 2.0 FiO2 28.00 (21.00-100.00) % Sodium (136-145) mEq/L Potassium (3.5-5.1) mEq/L Chloride (98-107) mEq/L Carbon Dioxide (21-32) mEq/L Anion Gap (5-15) BUN (7-18) mg/dL Creatinine (0.7-1.3) mg/dL Est Cr Clr Drug Dosing mL/min Estimated GFR (MDRD) (>60) mL/min BUN/Creatinine Ratio (14-18) Glucose (70-99) mg/dL Lactic Acid (0.4-2.0) mmol/L Calcium (8.5-10.1) mg/dL Magnesium (1.8-2.4) mg/dL Total Bilirubin (0.2-1.0) mg/dL AST (15-37) U/L ALT (16-63) U/L Alkaline Phosphatase (46-116) U/L Troponin I (0.00-0.056) ng/mL C-Reactive Protein (<1.0) mg/dL NT-Pro-B Natriuret Pep 81 (0-125) pg/mL Total Protein (6.4-8.2) g/dl Albumin (3.4-5.0) g/dl Globulin gm/dL Albumin/Globulin Ratio (1-2) Urine Color (Yellow) Urine Appearance (Clear) Urine pH (5.0-8.0) Ur Specific Mar[place] (1.005-1.030) Urine Protein (Negative) Urine Glucose (UA) (Negative) Urine Ketones (Negative) Urine Occult Blood (Negative) Urine Nitrite (Negative) Urine Bilirubin (Negative) Urine Urobilinogen (0.2-1.0) Ur Leukocyte Esterase (Negative) Influenza Type A RNA (NEGATIVE) Influenza Type B RNA (NEGATIVE) SARS-CoV-2 RNA (JERRADO) (NEGATIVE) Result Diagrams: 02/20/21 20:30 02/20/21 21:30 Sepsis Event Note - Evaluation Sepsis Screening Result: Sepsis Risk - Focused Exam Vital Signs: Vital Signs Temp Temp Pulse Resp BP Pulse Ox 02/21/21 06:58 100.4 F 02/21/21 06:45 100.4 F 02/21/21 06:00 95 90 L 02/21/21 04:40 97 90 L 02/21/21 04:00 96 91 L 02/21/21 01:20 101 H 18 92 L 02/20/21 22:00 105 H 21 H 124/71 92 L 02/20/21 21:45 113 H 124/73 92 L 02/20/21 21:30 109 H 106/65 90 L 02/20/21 20:30 108 H 24 H 116/68 90 L - Problem List (1) Obstructive sleep apnea on CPAP SNOMED Code(s): 29245669 ICD Code: G47.33 - OBSTRUCTIVE SLEEP APNEA (ADULT) (PEDIATRIC); Z99.89 - DEPENDENCE ON OTHER ENABLING MACHINES AND DEVICES Status: Chronic Priority: Medium Current Visit: Yes (2) Hypothyroidism SNOMED Code(s): 90755645 ICD Code: E03.9 - HYPOTHYROIDISM, UNSPECIFIED Status: Chronic Priority: Medium Current Visit: Yes Qualifiers: Hypothyroidism type: unspecified Qualified Code(s): E03.9 - Hypothyroidism, unspecified (3) Obesity SNOMED Code(s): 743842114, 906491824 ICD Code: E66.9 - OBESITY, UNSPECIFIED Status: Chronic Priority: Medium Current Visit: Yes Qualifiers: Obesity type: unspecified obesity type Obesity classification: adult class 3 (BMI >= 40) Serious obesity comorbidity presence: without serious comorbidity Body mass index: BMI 40.0-44.9 Qualified Code(s): E66.01 - Morbid (severe) obesity due to excess calories; Z68.41 - Body mass index [BMI]40.0-44.9, adult (4) History of ARDS SNOMED Code(s): 259615120 ICD Code: Z87.09 - PERSONAL HISTORY OF OTHER DISEASES OF THE RESPIRATORY SYSTEM Status: Chronic Priority: Low Current Visit: No (5) Community acquired pneumonia SNOMED Code(s): 938618576 ICD Code: J18.9 - PNEUMONIA, UNSPECIFIED ORGANISM Status: Acute Priority: High Current Visit: Yes Qualifiers: Laterality: left Lung location: lower lobe of lung Qualified Code(s): J18.9 - Pneumonia, unspecified organism (6) Hypomagnesemia SNOMED Code(s): 086533122 ICD Code: E83.42 - HYPOMAGNESEMIA Status: Acute Priority: High Current Visit: Yes (7) GERD (gastroesophageal reflux disease) SNOMED Code(s): 776426395 ICD Code: K21.9 - GASTRO-ESOPHAGEAL REFLUX DISEASE WITHOUT ESOPHAGITIS Status: Chronic Priority: Medium Current Visit: No Qualifiers: Esophagitis presence: esophagitis presence not specified Qualified Code(s): K21.9 - Gastro-esophageal reflux disease without esophagitis (8) Hiatal hernia SNOMED Code(s): 61693865 ICD Code: K44.9 - DIAPHRAGMATIC HERNIA WITHOUT OBSTRUCTION OR GANGRENE Status: Chronic Priority: Low Current Visit: No (9) Nicotine dependence SNOMED Code(s): 73335327 ICD Code: F17.200 - NICOTINE DEPENDENCE, UNSPECIFIED, UNCOMPLICATED Status: Chronic Priority: Medium Current Visit: Yes Qualifiers: Nicotine product type: cigarettes Substance use status: uncomplicated Qualified Code(s): F17.210 - Nicotine dependence, cigarettes, uncomplicated (10) SIRS without acute organ dysfunction due to infectious process SNOMED Code(s): 93259028068436, 46974776681764 ICD Code: XSZ1280 - Status: Acute Priority: High Current Visit: Yes (11) Herpes zoster SNOMED Code(s): 8175848 ICD Code: B02.9 - ZOSTER WITHOUT COMPLICATIONS Status: Acute Priority: High Current Visit: Yes Qualifiers: Herpes zoster complications: without complications Qualified Code(s): B02.9 - Zoster without complications Problem List Initiated/Reviewed/Updated: Yes Orders Last 24hrs: Active Orders 24 hr Category Date Time Status Blood Pressure Mgt: Sepsis [RC] [id number] Care 02/20/21 20:19 Active Cardiac Monitoring [RC] CONTINUOUS Care 02/20/21 20:21 Active EKG 12 Lead [EKG Documentation Completion] [RC] ROUTINE Care 02/20/21 19:39 Active Oxygen Therapy, ED [] ASDIRECTED Care 02/20/21 19:55 Active Chest 1V Frontal [CR] Stat Exams 02/20/21 20:18 Taken CULTURE BLOOD [BC] Stat Lab 02/20/21 20:30 Received CULTURE BLOOD [BC] Stat Lab 02/20/21 20:35 Received Sodium Chloride 0.9% [Saline Flush] Med 02/20/21 20:18 Active 10 ml FLUSH ASDIRECTED PRN Blood Culture x2 Reflex Set [OM.PC] Stat Oth 02/20/21 20:18 Ordered Pulse Oximetry Continuous Monitoring [OM.PC] Routine Oth 02/20/21 20:18 Active Saline Lock Insert [OM.PC] Stat Oth 02/20/21 20:18 Ordered Severe Sepsis Onset Time [OM.PC] Stat Oth 02/20/21 20:19 Ordered Medication Orders Sodium Chloride (Sodium Chloride 0.9% 10 Ml Syringe) 10 ml FLUSH ASDIRECTED PRN PRN Reason: Keep Vein Open Last Admin: 02/20/21 20:38 Dose: 10 ml Documented by: ANGELLA Assessment/Plan Comment:: Assessment - day of admission 02/21/2021 * 36-year-old male presents to ED with generalized myalgias, chills, headache, dyspnea, and cough. * History of sleep apnea on CPAP, GERD, hiatal hernia, hypothyroidism, obesity, ARDS. * Daily 1 pack a day smoker * Noted to be tachycardic, afebrile but chilled, and hypoxemic requiring 2 L of oxygen in the ED * Per patient saturations are normally in the upper 80s to low 90s. * Twelve-lead EKG obtained showing sinus tachycardia [address] changes. Compared to prior EKG on 01/28/2019 which at that time had many PVCs. No other changes. * Chest x-ray obtained showing slight increased density within the left lung base most likely representing area of atelectasis or small area of pneumonia. * Labs obtained: * WBC 19.08 * Hemoglobin 15.1 * Pleasant 189,000 * Neutrophils 80% with 4% band neutrophils noted * INR 1.02 * APTT 30.7 * D-dimer less than 0.19 * Sodium 137 * Potassium 3.9 * Carbon dioxide 26 * Anion gap 13.9 * BUN 17, creatinine 1.1, GFR greater than 60 * Glucose 108 * Lactic acid 1.3 * Magnesium 1.6 * Total bilirubin 0.5 * AST 29, ALT 48, alkaline phosphatase 58 * Troponin less than 0.017 * CRP 0.8 * Albumin 3.9 * proBNP 81 * UA negative * Influenza a and B both negative * SARS Covid 2 RNA negative * TSH 0.150 * ABG obtained in left radial: pH 7.43. PCO2 41.0. PO2 of 57.0. HCO3 of 26.9. O2 saturation of 85.8. Base excess 2.8. AA gradient 42. Obtained on nasal cannula 2 L. * Given 2 g magnesium and multiple fluid boluses. Also given Tylenol, 2 g Roce phin, and 500 mg azithromycin. * Admitted to medical floor on telemetry for management of community-acquired pneumonia. * Sepsis criteria: * Suspected pneumonia with leukocytosis and tachycardia however no organ dysfunction noted * Does not meet sepsis criteria. Only meets SIRS criteria. * On admission patient noted to have area of warm erythema on right anterior lower leg. There were also vesicular lesions noted in the patients right groin. Patient reports significant pain. PLAN: Community acquired pneumonia Obstructive sleep apnea on CPAP SIRS without acute organ dysfunction due to infectious process History of ARDS Obesity * Rocephin 2gm daily * Azithromycin 500mg daily * O2 as needed to keep saturations >90% * Chest CT given history of ARDS and patients baseline reported low saturations * IS/Acapella * RT consultation * PRN duonebs * Check procalcitonin * Check mycoplasma * Sputum culture if able to produce * Await blood cultures * Droplet precautions * Home CPAP at night * Follow daily labs * Consider pulmonology follow-up at discharge * Consider mill worker consultation Herpes Zoster * Pain medications as ordered * Start Valacyclovir 1000mg TID for 7 days Hypomagnesemia * Supplemented in ED * Re-check labs in AM Hypothyroidism * Increase home supplementation to 200mcg * Will need PCP follow-up GERD (gastroesophageal reflux disease) Hiatal hernia * Continue home PPI * No acute concerns Nicotine dependence * Daily 21mg nicotine patch * Cessation counseling * Offer patches at discharge Code status: Full TELEPHONE APPOINTMENT CLERK: Dr. Durham DVT prophylaxis: Disposition: Patient admitted to the floor on telemetry. Anticipated length of stay is 3 to 4 days. - Mortality Measure Prognosis:: Good
--- NOTE | 2021-02-21 08:19 | CR ---
Chest: Portable view of the chest was obtained. Comparison: Prior chest x-ray of 01/28/19. Slight increased density within the left lung base is seen. Lungs otherwise are clear. Heart size and mediastinum are normal. Bony structures show nothing acute. Impression: 1. Slight increased density within the left lung base most likely representing an area of atelectasis or small area of pneumonia. Diagnostic code #3 Agree with preliminary report issued by Wanda finalized on 02/20/21, 11:17 PM CDT, code 1
[2021-02-21] MEDS ORDERED: Albuterol/Ipratropium 3.0-0.5 MG/3 ML Neb Soln NEB PRN (09:11)
[2021-02-21] MEDS ORDERED: Ondansetron 4 MG/2 ML SDV IV PRN (09:11)
--- NOTE | 2021-02-21 10:22 | CT ---
CT chest Technique: Multiple axial sections were obtained from above the lung apices inferiorly through the lung bases. Intravenous contrast was not utilized. Reconstructed coronal and sagittal images were obtained. Comparison: Prior chest CT study of 01/28/19. Findings: Lung window settings show mild increased linear densities within both lung bases, slightly more prominent on the left side. Prior study showed a large diaphragmatic hernia which is not seen on current exam. Lungs otherwise are clear. No significant pulmonary nodules are seen on current exam as noted on previous exam. Thoracic aorta shows no aneurysm. Mediastinum and hilar regions show no adenopathy. No pericardial thickening is seen. Visualized portion of the upper abdominal structures show no discrete abnormality. Bone window settings were reviewed which show no acute osseous abnormality. Impression: 1. Mild linear densities within both lung bases, worse on the left side. Previous study showed a large diaphragmatic hernia which is no longer seen. Current densities could relate to previous surgery as well as atelectasis or small areas of pneumonia. 2. No other acute abnormality is appreciated. Diagnostic code #3
[2021-02-21] MEDS: Nicotine 21 MG/24 Hr Patch TRDERM SCH (10:28)
[2021-02-21] MEDS ORDERED: Acetaminophen/HYDROcodone 325-5 MG Tab PO PRN (10:29)
[2021-02-21] MEDS: Pantoprazole 40 MG Tab.CR PO SCH (10:29)
[2021-02-21] MEDS: buPROPion 150 MG Tab.ER PO SCH (10:29)
[2021-02-21] MEDS: Acetaminophen 325 MG Tab PO PRN (10:33)
[2021-02-21] MEDS: valACYclovir 1,000 MG Tab PO SCH ×2 (15:39→19:59)
[2021-02-21] MEDS: Acetaminophen/HYDROcodone 325-5 MG Tab PO PRN ×2 (15:39→19:54)
[2021-02-21] MEDS: Gabapentin 100 MG Cap PO SCH (19:54)
[2021-02-21] MEDS: Enoxaparin 40 MG/0.4 ML Syringe SUBCUT SCH (19:55)
[2021-02-21] MEDS: cefTRIAXone 2 GM in Sodium Chloride 0.9% 100 ML IV SCH (23:17)
[2021-02-22] MEDS: Acetaminophen/HYDROcodone 325-5 MG Tab PO PRN ×3 (00:10→04:42)
[2021-02-22] MEDS: Azithromycin 500 MG in Sodium Chloride 0.9% 250 ML IV SCH ×2 (00:11→23:30)
[2021-02-22] MEDS ORDERED: Levothyroxine 75 MCG Tab PO SCH (06:00)
[2021-02-22] MEDS ORDERED: Levothyroxine 100 MCG Tab PO SCH (06:00)
--- NOTE | 2021-02-22 07:30 | PCM.PN ---
- General Info Date of Service: 02/22/21 Admission Dx/Problem (Free Text): Pneumonia Functional Status: Reports: Tolerating Diet, Ambulating, Urinating, Incentive Spirometry, Other (Acapella ). Denies: Pain Controlled (Rather significant pain in right leg.), New Symptoms - Review of Systems General: Reports: Chills. Denies: Fever (low grade but does not meet fever definition ), Weakness, Fatigue, Malaise HEENT: Reports: No Symptoms. Denies: Headaches, Sore Throat Pulmonary: Reports: Shortness of Breath (improving ), Cough (improving ). Denies: Sputum, Wheezing Cardiovascular: Reports: No Symptoms. Denies: Chest Pain, Palpitations, Dyspnea on Exertion Gastrointestinal: Reports: No Symptoms. Denies: Abdominal Pain, Constipation, Diarrhea, Nausea, Vomiting Genitourinary: Reports: No Symptoms. Denies: Pain Musculoskeletal: Reports: Leg Pain (Secondary to shingles on right leg.) Skin: Reports: No Symptoms. Denies: Cyanosis Neurological: Reports: No Symptoms. Denies: Confusion, Difficulty Walking, Weakness, Gait Disturbance Psychiatric: Reports: No Symptoms - Patient Data Vitals - Most Recent: Last Vital Signs Temp 100.6 F 02/22/21 05:00 Pulse 112 H 02/22/21 05:00 Resp 20 02/22/21 05:00 BP 130/81 02/22/21 05:00 Pulse Ox 93 L 02/22/21 06:40 Weight - Most Recent: 272 lb 11.2 oz I&O - Last 24 Hours: Intake & Output 02/21/21 02/22/21 02/22/21 22:59 06:59 14:59 Intake Total 474 1750 Output Total 950 Balance 474 800 Lab Results Last 24 Hours: Laboratory Results - last 24 hr 02/21/21 02/21/21 02/21/21 Range/Units 10:44 10:44 10:44 WBC (4.23-9.07) K/mm3 RBC (4.63-6.08) M/mm3 Hgb (13.7-17.5) gm/dl Hct (40.1-51.0) % MCV (79.0-92.2) fl MCH (25.7-32.2) pg MCHC (32.2-35.5) g/dl RDW Std Deviation (35.1-43.9) fL Plt Count (163-337) K/mm3 MPV (9.4-12.3) fl Neut % (Auto) (34.0-67.9) % Lymph % (Auto) (21.8-53.1) % [place] % (Auto) (5.3-12.2) % Eos % (Auto) (0.8-7.0) Baso % (Auto) (0.1-1.2) % Neut # (Auto) (1.78-5.38) K/mm3 Lymph # (Auto) (1.32-3.57) K/mm3 [place] # (Auto) (0.30-0.82) K/mm3 Eos # (Auto) (0.04-0.54) K/mm3 Baso # (Auto) (0.01-0.08) K/mm3 Manual Slide Review Sodium (136-145) mEq/L Potassium (3.5-5.1) mEq/L Chloride (98-107) mEq/L Carbon Dioxide (21-32) mEq/L Anion Gap (5-15) BUN (7-18) mg/dL Creatinine (0.7-1.3) mg/dL Est Cr Clr Drug Dosing mL/min Estimated GFR (MDRD) (>60) mL/min BUN/Creatinine Ratio (14-18) Glucose (70-99) mg/dL Calcium (8.5-10.1) mg/dL Magnesium (1.8-2.4) mg/dL Total Bilirubin (0.2-1.0) mg/dL AST (15-37) U/L ALT (16-63) U/L Alkaline Phosphatase (46-116) U/L C-Reactive Protein (<1.0) mg/dL Total Protein (6.4-8.2) g/dl Albumin (3.4-5.0) g/dl Globulin gm/dL Albumin/Globulin Ratio (1-2) TSH 3rd Generation 0.150 L (0.358-3.74) uIU/mL HIV-1 Ab Rapid Screen Negative (NEGATIVE) Mycoplasma pneumon IgM Negative (NEGATIVE) 02/22/21 02/22/21 Range/Units 05:05 05:05 WBC 15.51 H (4.23-9.07) K/mm3 RBC 4.54 L (4.63-6.08) M/mm3 Hgb 14.1 (13.7-17.5) gm/dl Hct 43.9 (40.1-51.0) % MCV 96.7 H (79.0-92.2) fl MCH 31.1 (25.7-32.2) pg MCHC 32.1 L (32.2-35.5) g/dl RDW Std Deviation 51.4 H (35.1-43.9) fL Plt Count 134 L (163-337) K/mm3 MPV 11.9 (9.4-12.3) fl Neut % (Auto) 83.9 H (34.0-67.9) % Lymph % (Auto) 8.4 L (21.8-53.1) % [place] % (Auto) 6.8 (5.3-12.2) % Eos % (Auto) 0.1 L (0.8-7.0) Baso % (Auto) 0.3 (0.1-1.2) % Neut # (Auto) 13.03 H (1.78-5.38) K/mm3 Lymph # (Auto) 1.31 L (1.32-3.57) K/mm3 [place] # (Auto) 1.05 H (0.30-0.82) K/mm3 Eos # (Auto) 0.01 L (0.04-0.54) K/mm3 Baso # (Auto) 0.04 (0.01-0.08) K/mm3 Manual Slide Review Abnormal smear Sodium 135 L (136-145) mEq/L Potassium 3.8 (3.5-5.1) mEq/L Chloride 99 (98-107) mEq/L Carbon Dioxide 25 (21-32) mEq/L Anion Gap 14.8 (5-15) BUN 11 (7-18) mg/dL Creatinine 1.0 (0.7-1.3) mg/dL Est Cr Clr Drug Dosing 100.16 mL/min Estimated GFR (MDRD) > 60 (>60) mL/min BUN/Creatinine Ratio 11.0 L (14-18) Glucose 104 H (70-99) mg/dL Calcium 8.1 L (8.5-10.1) mg/dL Magnesium 1.8 (1.8-2.4) mg/dL Total Bilirubin 0.4 (0.2-1.0) mg/dL AST 18 (15-37) U/L ALT 35 (16-63) U/L Alkaline Phosphatase 52 (46-116) U/L C-Reactive Protein 20.7 H* (<1.0) mg/dL Total Protein 7.1 (6.4-8.2) g/dl Albumin 3.1 L (3.4-5.0) g/dl Globulin 4.0 gm/dL Albumin/Globulin Ratio 0.8 L (1-2) TSH 3rd Generation (0.358-3.74) uIU/mL HIV-1 Ab Rapid Screen (NEGATIVE) Mycoplasma pneumon IgM (NEGATIVE) [place] Results Last 24 Hours: Microbiology 02/20/21 20:30 Aerobic Blood Culture - Preliminary Blood - Venous NO GROWTH AFTER 1 DAY Anaerobic Blood Culture - Preliminary NO GROWTH AFTER 1 DAY 02/20/21 20:35 Aerobic Blood Culture - Preliminary Blood - Venous - Lab Draw NO GROWTH AFTER 1 DAY Anaerobic Blood Culture - Preliminary NO GROWTH AFTER 1 DAY Med Orders - Current: Current Medications Acetaminophen (Acetaminophen 325 Mg Tab) 650 mg PO Q4H PRN PRN Reason: Pain (Mild 1-3)/fever Last Admin: 02/21/21 10:33 Dose: 650 mg Documented by: Albuterol/Ipratropium (Albuterol/Ipratropium 3.0-0.5 Mg/3 Ml Neb Soln) 3 ml NEB Q4H PRN PRN Reason: Shortness Of Breath/wheezing Bupropion HCl (Bupropion 150 Mg Tab.Er) 150 mg PO DAILY [facility] Last Admin: 02/21/21 10:29 Dose: 150 mg Documented by: Enoxaparin Sodium (Enoxaparin 40 Mg/0.4 Ml Syringe) 40 mg SUBCUT DAILY [facility] Last Admin: 02/21/21 19:55 Dose: 40 mg Documented by: Fluoxetine HCl (Fluoxetine 20 Mg Cap) 20 mg PO DAILY [facility] Gabapentin (Gabapentin 100 Mg Cap) 100 mg PO BID [facility] Last Admin: 02/21/21 19:54 Dose: 100 mg Documented by: Azithromycin 500 mg/ Sodium (Chloride) 250 mls @ 250 mls/hr IV Q24H [facility] Last Admin: 02/22/21 00:11 Dose: 250 mls/hr Documented by: Ceftriaxone Sodium 2 gm/ (Sodium Chloride) 100 mls @ 200 mls/hr IV Q24H [facility] Last Admin: 02/21/21 23:17 Dose: 200 mls/hr Documented by: Ketorolac Tromethamine (Ketorolac 30 Mg/Ml Sdv) 30 mg IVPUSH Q6H PRN PRN Reason: Pain (moderate 4-6) Levothyroxine Sodium (Levothyroxine 200 Mcg Tab) 200 mcg PO ACBREAKFAST [facility] Last Admin: 02/22/21 05:34 Dose: 200 mcg Documented by: Miscellaneous Information (Remove Nicotine Patch) 1 ea TRDERM DAILY [facility] Nicotine (Nicotine 21 Mg/24 Hr Patch) 21 mg TRDERM DAILY [facility] Last Admin: 02/21/21 10:28 Dose: Not Given Documented by: Ondansetron HCl (Ondansetron 4 Mg/2 Ml Sdv) 4 mg IV Q6H PRN PRN Reason: Nausea/Vomiting Oxycodone/Acetaminophen (Acetaminophen/Oxycodone 325-5 Mg Tab) 1 - 2 tab PO Q4H PRN PRN Reason: Pain (severe 7-10) Pantoprazole Sodium (Pantoprazole 40 Mg Tab.Cr) 20 mg PO DAILY [facility] Last Admin: 02/21/21 10:29 Dose: 20 mg Documented by: Sodium Chloride (Sodium Chloride 0.9% 10 Ml Syringe) 10 ml FLUSH ASDIRECTED PRN PRN Reason: Keep Vein Open Last Admin: 02/20/21 20:38 Dose: 10 ml Documented by: Valacyclovir HCl (Valacyclovir 1,000 Mg Tab) 1,000 mg PO TID [facility] Stop: 02/28/21 15:01 Last Admin: 02/21/21 19:59 Dose: 1,000 mg Documented by: Discontinued Medications Acetaminophen (Acetaminophen 325 Mg Tab) 975 mg PO NOW ONE Stop: 02/21/21 06:54 Last Admin: 02/21/21 06:58 Dose: 975 mg Documented by: Hydrocodone Bitart/Acetaminophen (Acetaminophen/Hydrocodone 325-5 Mg Tab) 1 tab PO Q4H PRN PRN Reason: Pain (moderate 4-6) Last Admin: 02/21/21 12:08 Dose: 1 tab Documented by: Hydrocodone Bitart/Acetaminophen (Acetaminophen/Hydrocodone 325-5 Mg Tab) 1 - 2 tab PO Q4H PRN PRN Reason: Pain (moderate 4-6) Last Admin: 02/22/21 04:42 Dose: 1 tab Documented by: Sodium Chloride (Normal Saline) 1,000 mls @ 999 mls/hr IV BOLUS ONE; Protocol Stop: 02/20/21 21:18 Last Admin: 02/20/21 20:38 Dose: 999 mls/hr Documented by: Magnesium Sulfate (Magnesium Sulfate In Water 2 Gm/50 Ml) 2 gm in 50 mls @ 25 mls/hr IV ONETIME ONE Stop: 02/21/21 00:23 Last Admin: 02/20/21 22:36 Dose: 25 mls/hr Documented by: Ceftriaxone Sodium 2 gm/ (Sodium Chloride) 100 mls @ 200 mls/hr IV ONETIME STA Stop: 02/20/21 23:31 Last Admin: 02/21/21 00:23 Dose: 200 mls/hr Documented by: Azithromycin 500 mg/ Sodium (Chloride) 250 mls @ 250 mls/hr IV ONETIME STA Stop: 02/21/21 00:03 Last Admin: 02/20/21 23:14 Dose: 250 mls/hr Documented by: Sodium Chloride (Normal Saline) 1,000 mls @ 999 mls/hr IV ONETIME ONE Stop: 02/21/21 00:40 Last Admin: 02/21/21 00:23 Dose: 999 mls/hr Documented by: Levothyroxine Sodium (Levothyroxine 75 Mcg Tab) 75 mcg PO ACBRK [facility] Levothyroxine Sodium (Levothyroxine 100 Mcg Tab) 100 mcg PO ACBRK [facility] - Exam Quality Assessment: Supplemental Oxygen (1L), DVT Prophylaxis. No: Urine Cath eter General: Alert, Oriented, Cooperative, No Acute Distress HEENT: Pupils Equal, Pupils Reactive, Mucous Membr. Moist/[place] Neck: Supple, Trachea Midline Lungs: Clear to Auscultation, Normal Respiratory Effort, Decreased Breath Sounds Cardiovascular: Regular Rate, Regular Rhythm GI/Abdominal Exam: Normal Bowel Sounds, Soft, Non-Tender, No Distention (Male) Exam: Deferred Back Exam: Normal Inspection, Full Range of Motion Extremities: Normal Range of Motion, Non-Tender, No Pedal Edema, Normal Capillary Refill, Leg Pain (2/2 shingles ), Increased Warmth (from shingles rash), Redness, Other (Rash on anterior aspect of right lower leg which has grown in size to cover majority of lower leg. No vesicles noted. Rash also noted on right groin which is also grown in size. Vesicles noted in this area.) Peripheral Pulses: 3+: Radial (L), Radial (R), Dorsalis Pedis (L), Dorsalis Pedis (R) Skin: Warm, Intact, Moist (Patient is sweaty), Rash (Anterior aspect and groin of right leg as mentioned above) Neurological: No New Focal Deficit Psy/Mental Status: Alert, Normal Affect, Normal Mood - Patient Data Lab Results Last 24 hrs: Laboratory Results - last 24 hr 02/21/21 02/21/21 02/21/21 Range/Units 10:44 10:44 10:44 WBC (4.23-9.07) K/mm3 RBC (4.63-6.08) M/mm3 Hgb (13.7-17.5) gm/dl Hct (40.1-51.0) % MCV (79.0-92.2) fl MCH (25.7-32.2) pg MCHC (32.2-35.5) g/dl RDW Std Deviation (35.1-43.9) fL Plt Count (163-337) K/mm3 MPV (9.4-12.3) fl Neut % (Auto) (34.0-67.9) % Lymph % (Auto) (21.8-53.1) % [place] % (Auto) (5.3-12.2) % Eos % (Auto) (0.8-7.0) Baso % (Auto) (0.1-1.2) % Neut # (Auto) (1.78-5.38) K/mm3 Lymph # (Auto) (1.32-3.57) K/mm3 [place] # (Auto) (0.30-0.82) K/mm3 Eos # (Auto) (0.04-0.54) K/mm3 Baso # (Auto) (0.01-0.08) K/mm3 Manual Slide Review Sodium (136-145) mEq/L Potassium (3.5-5.1) mEq/L Chloride (98-107) mEq/L Carbon Dioxide (21-32) mEq/L Anion Gap (5-15) BUN (7-18) mg/dL Creatinine (0.7-1.3) mg/dL Est Cr Clr Drug Dosing mL/min Estimated GFR (MDRD) (>60) mL/min BUN/Creatinine Ratio (14-18) Glucose (70-99) mg/dL Calcium (8.5-10.1) mg/dL Magnesium (1.8-2.4) mg/dL Total Bilirubin (0.2-1.0) mg/dL AST (15-37) U/L ALT (16-63) U/L Alkaline Phosphatase (46-116) U/L C-Reactive Protein (<1.0) mg/dL Total Protein (6.4-8.2) g/dl Albumin (3.4-5.0) g/dl Globulin gm/dL Albumin/Globulin Ratio (1-2) TSH 3rd Generation 0.150 L (0.358-3.74) uIU/mL HIV-1 Ab Rapid Screen Negative (NEGATIVE) Mycoplasma pneumon IgM Negative (NEGATIVE) 02/22/21 02/22/21 Range/Units 05:05 05:05 WBC 15.51 H (4.23-9.07) K/mm3 RBC 4.54 L (4.63-6.08) M/mm3 Hgb 14.1 (13.7-17.5) gm/dl Hct 43.9 (40.1-51.0) % MCV 96.7 H (79.0-92.2) fl MCH 31.1 (25.7-32.2) pg MCHC 32.1 L (32.2-35.5) g/dl RDW Std Deviation 51.4 H (35.1-43.9) fL Plt Count 134 L (163-337) K/mm3 MPV 11.9 (9.4-12.3) fl Neut % (Auto) 83.9 H (34.0-67.9) % Lymph % (Auto) 8.4 L (21.8-53.1) % Merrick % (Auto) 6.8 (5.3-12.2) % Eos % (Auto) 0.1 L (0.8-7.0) Baso % (Auto) 0.3 (0.1-1.2) % Neut # (Auto) 13.03 H (1.78-5.38) K/mm3 Lymph # (Auto) 1.31 L (1.32-3.57) K/mm3 [place]rick # (Auto) 1.05 H (0.30-0.82) K/mm3 Eos # (Auto) 0.01 L (0.04-0.54) K/mm3 Baso # (Auto) 0.04 (0.01-0.08) K/mm3 Manual Slide Review Abnormal smear Sodium 135 L (136-145) mEq/L Potassium 3.8 (3.5-5.1) mEq/L Chloride 99 (98-107) mEq/L Carbon Dioxide 25 (21-32) mEq/L Anion Gap 14.8 (5-15) BUN 11 (7-18) mg/dL Creatinine 1.0 (0.7-1.3) mg/dL Est Cr Clr Drug Dosing 100.16 mL/min Estimated GFR (MDRD) > 60 (>60) mL/min BUN/Creatinine Ratio 11.0 L (14-18) Glucose 104 H (70-99) mg/dL Calcium 8.1 L (8.5-10.1) mg/dL Magnesium 1.8 (1.8-2.4) mg/dL Total Bilirubin 0.4 (0.2-1.0) mg/dL AST 18 (15-37) U/L ALT 35 (16-63) U/L Alkaline Phosphatase 52 (46-116) U/L C-Reactive Protein 20.7 H* (<1.0) mg/dL Total Protein 7.1 (6.4-8.2) g/dl Albumin 3.1 L (3.4-5.0) g/dl Globulin 4.0 gm/dL Albumin/Globulin Ratio 0.8 L (1-2) TSH 3rd Generation (0.358-3.74) uIU/mL HIV-1 Ab Rapid Screen (NEGATIVE) Mycoplasma pneumon IgM (NEGATIVE) Result Diagrams: 02/22/21 05:05 02/22/21 05:05 [place] Results Last 24 hrs: Microbiology 02/20/21 20:30 Aerobic Blood Culture - Preliminary Blood - Venous NO GROWTH AFTER 1 DAY Anaerobic Blood Culture - Preliminary NO GROWTH AFTER 1 DAY 02/20/21 20:35 Aerobic Blood Culture - Preliminary Blood - Venous - Lab Draw NO GROWTH AFTER 1 DAY Anaerobic Blood Culture - Preliminary NO GROWTH AFTER 1 DAY Sepsis Event Note - Evaluation Sepsis Screening Result: Sepsis Risk - Focused Exam Vital Signs: Vital Signs Temp Pulse Resp BP Pulse Ox Pulse Ox Pulse Ox 02/22/21 06:40 95 93 L 02/22/21 05:32 95 02/22/21 05:00 100.6 F 112 H 20 130/81 93 L 02/22/21 01:23 95 02/22/21 00:25 93 L 02/21/21 23:20 100.3 F 118 H 16 111/81 87 L 02/21/21 20:47 92 L 02/21/21 20:01 99.4 F 102 H 20 120/70 92 L - Problem List & Annotations (1) Obstructive sleep apnea on CPAP SNOMED Code(s): 82626879 Code(s): G47.33 - OBSTRUCTIVE SLEEP APNEA (ADULT) (PEDIATRIC); Z99.89 - DEPENDENCE ON OTHER ENABLING MACHINES AND DEVICES Status: Chronic Priority: Medium Current Visit: Yes (2) Hypothyroidism SNOMED Code(s): 84345438 Code(s): E03.9 - HYPOTHYROIDISM, UNSPECIFIED Status: Chronic Priority: Medium Current Visit: Yes Qualifiers: Hypothyroidism type: unspecified Qualified Code(s): E03.9 - Hypothyroidism, unspecified (3) Obesity SNOMED Code(s): 941429582, 660301763 Code(s): E66.9 - OBESITY, UNSPECIFIED Status: Chronic Priority: Medium Current Visit: Yes Qualifiers: Obesity type: unspecified obesity type Obesity classification: adult class 3 (BMI >= 40) Serious obesity comorbidity presence: without serious comorbidity Body mass index: BMI 40.0-44.9 Qualified Code(s): E66.01 - Morbid (severe) obesity due to excess calories; Z68.41 - Body mass index [ BMI]40.0-44.9, adult (4) History of ARDS SNOMED Code(s): 045486431 Code(s): Z87.09 - PERSONAL HISTORY OF OTHER DISEASES OF THE RESPIRATORY SYSTEM Status: Chronic Priority: Low Current Visit: No (5) Community acquired pneumonia SNOMED Code(s): 759370191 Code(s): J18.9 - PNEUMONIA, UNSPECIFIED ORGANISM Status: Acute Priority: High Current Visit: Yes Qualifiers: Laterality: left Lung location: lower lobe of lung Qualified Code(s): J18.9 - Pneumonia, unspecified organism (6) Hypomagnesemia SNOMED Code(s): 981260811 Code(s): E83.42 - HYPOMAGNESEMIA Status: Acute Priority: High Current Visit: Yes (7) GERD (gastroesophageal reflux disease) SNOMED Code(s): 058451686 Code(s): K21.9 - GASTRO-ESOPHAGEAL REFLUX DISEASE WITHOUT ESOPHAGITIS Status: Chronic Priority: Medium Current Visit: No Qualifiers: Esophagitis presence: esophagitis presence not specified Qualified Code(s): K21.9 - Gastro-esophageal reflux disease without esophagitis (8) Hiatal hernia SNOMED Code(s): 19230434 Code(s): K44.9 - DIAPHRAGMATIC HERNIA WITHOUT OBSTRUCTION OR GANGRENE Status: Chronic Priority: Low Current Visit: No (9) Nicotine dependence SNOMED Code(s): 42363533 Code(s): F17.200 - NICOTINE DEPENDENCE, UNSPECIFIED, UNCOMPLICATED Status: Chronic Priority: Medium Current Visit: Yes Qualifiers: Nicotine product type: cigarettes Substance use status: uncomplicated Qualified Code(s): F17.210 - Nicotine dependence, cigarettes, uncomplicated (10) SIRS without acute organ dysfunction due to infectious process SNOMED Code(s): 26097910913894, 93344188333020 Code(s): OWL8936 - Status: Acute Priority: High Current Visit: Yes (11) Herpes zoster SNOMED Code(s): 6532263 Code(s): B02.9 - ZOSTER WITHOUT COMPLICATIONS Status: Acute Priority: High Current Visit: Yes Qualifiers: Herpes zoster complications: without complications Qualified Code(s): B02.9 - Zoster without complications - Problem List Review Problem List Initiated/Reviewed/Updated: Yes - My Orders Last 24 Hours: My Active Orders 02/21/21 08:35 Admission Status [Patient Status] [ADT] Routine 02/21/21 09:11 Height and Weight [RC] 06 Oxygen Therapy [RC] PRN Up ad [place] [RC] 10,22 VTE/DVT Education [RC] PER UNIT ROUTINE Vital Signs [RC] Q4H Respiratory Care Assess and Treatment [CONS] Routine Acetaminophen [TylenoL] 650 mg PO Q4H PRN Albuterol/Ipratropium [DuoNeb 3.0-0.5 MG/3 ML] 3 ml NEB Q4H PRN Ondansetron [Zofran] 4 mg IV Q6H PRN Resuscitation Status Routine 02/21/21 09:12 Intake and Output [RC] 04,16 Pulse Oximetry [RC] PRN 02/21/21 09:13 RT Aerosol Therapy [RC] ASDIRECTED 02/21/21 09:15 RT Incentive Spirometry [RC] ASDIRECTED CULTURE SPUTUM + SMEAR [RM] Routine RT Acapella [RESPCARE] Routine 02/21/21 09:30 Nicotine [Habitrol] 21 mg TRDERM DAILY 02/21/21 09:46 CPAP Noctural Home [RT BiPAP/CPAP] [RC] ASDIRECTED 02/21/21 10:00 Pantoprazole [ProTONIX] 20 mg PO DAILY buPROPion [Wellbutrin XL] 150 mg PO DAILY 02/21/21 10:44 PROCALCITONIN [REF] Routine 02/21/21 Lunch Regular Diet [DIET] 02/21/21 15:00 valACYclovir [Valtrex] 1,000 mg PO TID 02/21/21 23:00 Azithromycin [Zithromax] 500 mg Sodium Chloride 0.9% [Normal Saline (AdvBag)] 250 ml IV Q24H cefTRIAXone [Rocephin] 2 gm Sodium Chloride 0.9% [Normal Saline] 100 ml IV Q24H 02/22/21 06:00 Levothyroxine 200 mcg PO ACBREAKFAST 02/22/21 07:26 Acetaminophen/oxyCODONE [Percocet 325-5 MG] 1 - 2 tab PO Q4H PRN Ketorolac [Toradol] 30 mg IVPUSH Q6H PRN 02/22/21 09:00 Remove Patch 1 ea TRDERM DAILY 02/23/21 05:11 CBC WITH AUTO DIFF [HEME] AM CMP [COMPREHENSIVE METABOLIC PN,CMP] [CHEM] AM CRP [C-REACTIVE PROTEIN] [CHEM] AM MAGNESIUM [CHEM] AM 02/24/21 05:11 CBC WITH AUTO DIFF [HEME] AM CMP [COMPREHENSIVE METABOLIC PN,CMP] [CHEM] AM CRP [C-REACTIVE PROTEIN] [CHEM] AM MAGNESIUM [CHEM] AM 02/25/21 05:11 CBC WITH AUTO DIFF [HEME] AM CMP [COMPREHENSIVE METABOLIC PN,CMP] [CHEM] AM CRP [C-REACTIVE PROTEIN] [CHEM] AM MAGNESIUM [CHEM] AM - Assessment Assessment:: Assessment - day of admission 02/21/2021 * 36-year-old male presents to ED with generalized myalgias, chills, headache, dyspnea, and cough. * History of sleep apnea on CPAP, GERD, hiatal hernia, hypothyroidism, obesity, ARDS. * Daily 1 pack a day smoker * Noted to be tachycardic, afebrile but chilled, and hypoxemic requiring 2 L of oxygen in the ED * Per patient saturations are normally in the upper 80s to low 90s. * Twelve-lead EKG obtained showing sinus tachycardia [address] changes. Compared to prior EKG on 01/28/2019 which at that time had many PVCs. No other changes. * Chest x-ray obtained showing slight increased density within the left lung base most likely representing area of atelectasis or small area of pneumonia. * Labs obtained: * WBC 19.08 * Hemoglobin 15.1 * Pleasant 189,000 * Neutrophils 80% with 4% band neutrophils noted * INR 1.02 * APTT 30.7 * D-dimer less than 0.19 * Sodium 137 * Potassium 3.9 * Carbon dioxide 26 * Anion gap 13.9 * BUN 17, creatinine 1.1, GFR greater than 60 * Glucose 108 * Lactic acid 1.3 * Magnesium 1.6 * Total bilirubin 0.5 * AST 29, ALT 48, alkaline phosphatase 58 * Troponin less than 0.017 * CRP 0.8 * Albumin 3.9 * proBNP 81 * UA negative * Influenza a and B both negative * SARS Covid 2 RNA negative * TSH 0.150 * ABG obtained in left radial: pH 7.43. PCO2 41.0. PO2 of 57.0. HCO3 of 26.9. O2 saturation of 85.8. Base excess 2.8. AA gradient 42. Obtained on nasal cannula 2 L. * Given 2 g magnesium and multiple fluid boluses. Also given Tylenol, 2 g Ro cephin, and 500 mg azithromycin. * Admitted to medical floor on telemetry for management of community-acquired pneumonia. * Sepsis criteria: * Suspected pneumonia with leukocytosis and tachycardia however no organ dysfunction noted * Does not meet sepsis criteria. Only meets SIRS criteria. * On admission patient noted to have area of warm erythema on right anterior lower leg. There were also vesicular lesions noted in the patients right groin. Patient reports significant pain. 02/22/2021 * Chest CT obtained yesterday: * 1. Mild linear densities within both lung bases worse on left side. Previous study showed a large diaphragmatic hernia which is no longer seen. Current densities could relate to previous surgery as well as atelectasis or small areas of pneumonia. * 2. No other acute is appreciated abnormality * Patient reports improved respiratory symptoms but worsening of right leg rash and pain. * Stop [place] and start Percocet PRN. Start PRN Toradol. Gabapentin BID scheduled started last night. * Down to 1L via NC. Was requiring 12-15L bled into CPAP last night * Continues to utilize IS and acapella * Worsening anterior right lower leg rash with no vesicles. Worsening right groin rash with vesicles noted. * Labs: * WBC 15.51. * Hemoglobin 14.1. * Platelet 134,000. * Neutrophils 83.9%. * Sodium 135. * Potassium 3.8. * BUN 11, creatinine 1.0, GFR greater than 60. * Glucose 104. * Calcium 8.1. * Magnesium 1.8. * CRP 20.7. * Albumin 3.1. * HIV antibody screen negative (yesterday) * Mycoplasma negative. (yesterday) * Continue current treatment plan. Attempt to wean O2. * Likely discharge in 1-2 days pending continued improvement. 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 Durham DVT prophylaxis: Lovenox Disposition: Patient admitted to the floor on telemetry. Anticipated length of stay is 3 to 4 days.
[2021-02-22] MEDS: Ketorolac 30 MG/ML SDV IVPUSH PRN ×3 (08:23→20:45)
[2021-02-22] MEDS: Gabapentin 100 MG Cap PO SCH ×2 (08:24→20:45)
[2021-02-22] MEDS: FLUoxetine 20 MG Cap PO SCH (08:24)
[2021-02-22] MEDS: valACYclovir 1,000 MG Tab PO SCH ×3 (08:24→20:45)
[2021-02-22] MEDS: buPROPion 150 MG Tab.ER PO SCH (08:24)
[2021-02-22] MEDS: Pantoprazole 40 MG Tab.CR PO SCH (08:24)
[2021-02-22] MEDS: Nicotine 21 MG/24 Hr Patch TRDERM SCH (08:25)
[2021-02-22] MEDS: Enoxaparin 40 MG/0.4 ML Syringe SUBCUT SCH (08:25)
[2021-02-22] MEDS ORDERED: Magnesium Sulfate/Water 2 GM/50 ML BAG IV ONE (09:00)
[2021-02-22] MEDS: Acetaminophen/oxyCODONE 325-5 MG Tab PO PRN ×3 (11:40→23:26)
[2021-02-22] MEDS: Acetaminophen 325 MG Tab PO PRN ×2 (14:22→19:23)
[2021-02-22] MEDS: cefTRIAXone 2 GM in Sodium Chloride 0.9% 100 ML IV SCH (23:26)
[2021-02-23] MEDS: Acetaminophen/oxyCODONE 325-5 MG Tab PO PRN (06:25)
[2021-02-23 07:50] VITALS: BP 128/76; PULSE 95
[2021-02-23] MEDS: Pantoprazole 40 MG Tab.CR PO SCH (08:04)
[2021-02-23] MEDS: FLUoxetine 20 MG Cap PO SCH (08:05)
[2021-02-23] MEDS: valACYclovir 1,000 MG Tab PO SCH (08:06)
[2021-02-23] MEDS: buPROPion 150 MG Tab.ER PO SCH (08:06)
[2021-02-23] MEDS: Enoxaparin 40 MG/0.4 ML Syringe SUBCUT SCH (08:07)
[2021-02-23] MEDS: Gabapentin 100 MG Cap PO SCH (08:07)
[2021-02-23] MEDS: Nicotine 21 MG/24 Hr Patch TRDERM SCH (08:08)
--- NOTE | 2021-02-23 08:53 | PCM.DCSUM1 ---
Discharge Summary - Hospital Course HPI Initial Comments: This is a 36-year-old male who presents to ED on the evening of 02/20/2021 with a headache, chills, generalized myalgias, and dyspnea which began earlier in the day around 1700. He reported a coughing fit which lasted 15 to 20 minutes and stated he believes he had a fever, although he did not ever utilize a thermometer to check it. 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 He reports that he was in a medically induced coma for about a week and did suffer from ARDS. No known recent sick contacts. He does not believe he had Covid during this pandemic and was not vaccinated for it. In the ED he is tachycardic at 110 bpm and hypoxemic with 87% saturations on room air. This does increase to 93% on 2 L of oxygen. Temperature is 100.1 but he does feel warm. He is requesting a temperature be increased in his room and states he is chilled. Blood pressure is 124/71. Respirations 18. Twelve-lead EKG is obtained showing a sinus tachycardia 105 bpm. Compared with EKG from 01/28/2019 which showed many PVCs and none are noted now. Labs were obtained showing a leukocytosis of 19.08. Hemoglobin 15.1. Platelet 189,000. 4% band neutrophils noted. INR is 1.02. aPTT is 30.7. D-dimer is less than 0.19. Sodium 137. Potassium 3.9. Chloride 101. Carbon dioxide 26. Anion gap 13.9. BUN is 17. Creatinine 1.1. GFR greater than 60. Glucose is 108. Lactic acid is 1.3. Calcium 8.9. Magnesium 1.6. Total bilirubin 0.5. AST is 29, ALT 48, alkaline phosphatase 58. Troponin less than 0.017. CRP 0.9. Albumin is 3.9. ABGs obtained in the left radial showing a pH of 7.43. PCO2 41.0. PO2 of 57.0. HCO3 of 26.9. O2 saturations 85.8%. Base excess is 2.8. AA gradient is 42. This is obtained on 2 L via nasal cannula. proBNP is 81. UA is negative. Influenza a and B are both negative. SARS Covid 2 RNA is negative. Blood cultures are pending. He is on 2 L of oxygen with saturations in the low 90s. He is given 2 g Rocephin and 500 mg azithromycin in the ED. He is given several fluid boluses. Chest x-ray is obtained showing a slight increased density within the left lung base most likely represent area of atelectasis or small area of pneumonia. Initially our facility was on diversion and plan was to transfer the patient out however there was no ambulance is available so the patient remained in the ED overnight. In the morning our facility was taken off of diversion and patient was subsequently admitted for management of his pneumonia. Just prior to being admitted the patient noted a rash on his right lower leg which is very painful. The patient has a history of herpes zoster in the past and reports this is similar to his prior rash and pain. Skin exam reveals large warm reddened and tender area to anterior aspect of right leg. No vesicles are noted in this area. Ther are also areas of rash in right groin region with early vesicles noted. He carries a history of sleep apnea on nightly CPAP, GERD, hiatal hernia, hypothyroidism, obesity. He is a current pack-a-day smoker. His primary care provider is Dr. Moya. He is a full code. Diagnosis: Stroke: No - Discharge Data Discharge Date: 02/23/21 (Admit date: 02/20/2021) Discharge Disposition: Home, Self-Care 01 Condition: Good - Referral to Home Health Primary Care Physician: PCP None - Discharge Diagnosis/Problem(s) (1) Obstructive sleep apnea on CPAP SNOMED Code(s): 17803990 ICD Code: G47.33 - OBSTRUCTIVE SLEEP APNEA (ADULT) (PEDIATRIC); Z99.89 - DEPENDENCE ON OTHER ENABLING MACHINES AND DEVICES Status: Chronic Priority: Medium Current Visit: Yes (2) Hypothyroidism SNOMED Code(s): 44310856 ICD Code: E03.9 - HYPOTHYROIDISM, UNSPECIFIED Status: Chronic Priority: Medium Current Visit: Yes Qualifiers: Hypothyroidism type: unspecified Qualified Code(s): E03.9 - Hypothyroidism, unspecified (3) Obesity SNOMED Code(s): 633115289, 920252290 ICD Code: E66.9 - OBESITY, UNSPECIFIED Status: Chronic Priority: Medium Current Visit: Yes Qualifiers: Obesity type: unspecified obesity type Obesity classification: adult class 3 (BMI >= 40) Serious obesity comorbidity presence: without serious comorbidity Body mass index: BMI 40.0-44.9 Qualified Code(s): E66.01 - Morbid (severe) obesity due to excess calories; Z68.41 - Body mass index [BMI]40.0-44.9, adult (4) History of ARDS SNOMED Code(s): 039501160 ICD Code: Z87.09 - PERSONAL HISTORY OF OTHER DISEASES OF THE RESPIRATORY SYSTEM Status: Chronic Priority: Low Current Visit: No (5) Community acquired pneumonia SNOMED Code(s): 902957000 ICD Code: J18.9 - PNEUMONIA, UNSPECIFIED ORGANISM Status: Acute Priority: High Current Visit: Yes Qualifiers: Laterality: left Lung location: lower lobe of lung Qualified Code(s): J18.9 - Pneumonia, unspecified organism (6) Hypomagnesemia SNOMED Code(s): 908100287 ICD Code: E83.42 - HYPOMAGNESEMIA Status: Resolved Priority: High Current Visit: Yes (7) GERD (gastroesophageal reflux disease) SNOMED Code(s): 454491405 ICD Code: K21.9 - GASTRO-ESOPHAGEAL REFLUX DISEASE WITHOUT ESOPHAGITIS Status: Chronic Priority: Medium Current Visit: No Qualifiers: Esophagitis presence: esophagitis presence not specified Qualified Code(s): K21.9 - Gastro-esophageal reflux disease without esophagitis (8) Hiatal hernia SNOMED Code(s): 38970711 ICD Code: K44.9 - DIAPHRAGMATIC HERNIA WITHOUT OBSTRUCTION OR GANGRENE Status: Chronic Priority: Low Current Visit: No (9) Nicotine dependence SNOMED Code(s): 80626007 ICD Code: F17.200 - NICOTINE DEPENDENCE, UNSPECIFIED, UNCOMPLICATED Status: Chronic Priority: Medium Current Visit: Yes Qualifiers: Nicotine product type: cigarettes Substance use status: uncomplicated Qualified Code(s): F17.210 - Nicotine dependence, cigarettes, uncomplicated (10) SIRS without acute organ dysfunction due to infectious process SNOMED Code(s): 29545537161947, 35263849343564 ICD Code: WHE8533 - Status: Acute Priority: High Current Visit: Yes (11) Herpes zoster SNOMED Code(s): 0963872 ICD Code: B02.9 - ZOSTER WITHOUT COMPLICATIONS Status: Acute Priority: High Current Visit: Yes Qualifiers: Herpes zoster complications: without complications Qualified Code(s): B02.9 - Zoster without complications - Patient Summary/Data Consults: Consultations 02/21/21 09:11 Respiratory Care Assess and Treatment [CONS] Routine Labs Pending at D/C: None Recommended Follow-up Testing/Procedures: Follow-up with primary care provider within 7 to 10 days of discharge, sooner if needed. -Patient's TSH here was low and his levothyroxine dose was decreased to 175 mcg/day. -Recommend repeat TSH in 3 months. -Patient noted to have herpes zoster outbreak on right leg. Pain was controlled with gabapentin and Percocet. -Magnesium was low here and was supplemented with a 3-day course at discharge. -Recommend repeat CBC, CMP, and magnesium at follow-up. -Consider repeat chest x-ray at follow-up. Hospital Course: This is a 36-year-old male who presents to ED on 02/20/2021 with generalized myalgias, chills, headache, dyspnea and cough. He carries a history of sleep apnea with nighttime CPAP, GERD, hiatal hernia, hypothyroidism, obesity, and ARDS. He is also a 1 pack a day smoker. In the ED he is noted to be tachycardic and afebrile but chilled. He was hypoxemic requiring 2 L of oxygen. Chest x-ray was obtained showing a slight increased density within the left lung base most likely representing atelectasis or small area of pneumonia. WBC was elevated at 19.08. Neutrophils were elevated 80% with 4% band neutrophils noted. Influenza a and B and SARS Covid 2 RNA were both negative. Patient is on levothyroxine and TSH is low at 0.150. Magnesium is noted to be 1.6 in the ED and is given 2 g. She is given a fluid bolus, Tylenol, 2 g Rocephin, and started on 500 mg azithromycin. Original plan was to transfer the patient to [place] as our facility was on diversion but no ambulances were available so patient remained in our facility. In the morning we had reviewed available and patient was admitted for management of his community-acquired pneumonia. He was noted to have leukocytosis and tachycardia but there was no organ dysfunction noted so he did not meet sepsis criteria. Per the patient he reports saturations are normally in the upper 80s and low 90s. Chest CT is obtained showing 1. Mild linear densities within both lung bases worse on left side. Previous study showed a large diaphragmatic hernia which is no longer seen. Current densities could relate to previous surgery as well as atelectasis or small areas of pneumonia. 2. No other acute is appreciated abnormality. While in the ED patient notes significant right-sided leg pain and a rash developing on the anterior surface of his lower right leg. He reports he carries a history of herpes zoster and this rash looks similar to his prior outbreak. Full body skin assessment is performed and is noted to have a rash also in his groin on the right side with vesicles noted. Because of this he is started on 1 g valacyclovir 3 times daily. His pain was quite significant and [facility] was not providing adequate pain coverage. He was switched to Percocet as needed and started on 100 mg twice daily gabapentin which helped significantly. He was utilizing his incentive spirometry and Acapella. He was weaned off of oxygen. Initial CRP was 0.8 and this did increase to 20.7 and then decreased to 18.0. He does have a history of sleep apnea and did wear his CPAP while here. Mycoplasma was obtained and was negative. Given his history of recurrent lung issues HIV antibody screen was obtained and was negative. Is a smoker who refused nicotine patches while here. We spoke about practical resources and nicotine patches. He requested patches at discharge and he will be prescribed 20 days of 21 mg patches. We discussed how he will need to follow-up with his primary care provider for more patches as this is a multi week process. He was prescribed 1 more 500 mg dose of azithromycin which she should take today (02/23/2021) at 2300. He will then complete his azithromycin treatment. He will be prescribed Keflex 500 mg 3 times daily with his first dose tonight at 2300. He will complete 5 days of antibiotic treatment. Blood cultures have been negative. We discussed diet and exercise. He will be prescribed as needed Tylenol for mild pain and 1 tablet of Percocet every 6 hours as needed for more severe pain. He will be prescribed twice daily 100 mg gabapentin for nerve pain as mentioned prior. We will continue 1 g valacyclovir 3 times daily for a total of 7 days of treatment. His magnesium was low here and was supplemented. He will be prescribed 3 more days of 400 mg daily magnesium supplementation at discharge. He should follow-up with his primary care provider for recheck of labs and possible continuation of supplementation. Patient is taking 200 mcg of levothyroxine daily and his TSH was low here at 0.150. His dosing will be decreased to 175 mcg daily. He should follow-up with his primary care provider for repeat labs in 3 months regarding this. He was discharged home today. Recommend follow-up with primary care provider within 7 to 10 days of discharge, sooner if needed. Recommend repeat CBC, CMP, and magnesium at that appointment. Patient discharged on Tylenol, Percocet, gabapentin, valacyclovir, 21 mg nicotine patches, azithromycin, Keflex, and the decreased dose of levothyroxine as mentioned prior. He was instructed to continue to utilize his incentive spirometry and Acapella for 1 to 2 weeks or until symptoms resolve. He was advised not to operate heavy machinery or drive a vehicle while on narcotic pain medications. He was instructed to return the emergency room or contact his primary care provider should symptoms return or worsen. Other home medications were continued. - Patient Instructions Diet: Usual Diet as Tolerated Activity: As Tolerated Driving: Do Not Drive (Until off narcotic medications ) Showering/Bathing: May Shower Notify Provider of: Fever, Increased Pain, Nausea and/or Vomiting Other/Special Instructions: Follow-up with primary care provider within 7 to 10 days of discharge, sooner if needed. Continue to utilize her incentive spirometry (clear/blue device you INHALE through) and acapella (Green tube you BLOW through) for 1 to 2 weeks or until symptoms resolve. Take all new medications as prescribed. Your labs indicate that your levothyroxine needs to be increased. A new prescription for this was sent to your pharmacy. Be sure to take the increased dose. Follow-up with your primary care provider regarding this in the future. You were prescribed a narcotic pain medication called Percocet which can impair your ability to drive or operate machinery. Do not drive while on this medication. This medication does have the potential for addiction so try to wean off soon as possible. You should only take this for severe pain utilize Tylenol for less severe pain. This medication may also make you constipated. Take [id number] stool softeners or laxatives as needed. Resume home medications as directed. Continue to wear your CPAP at night and when napping as before. You were prescribed 2 antibiotics for your pneumonia. The first one is azithromycin. You should take this tonight (02/23/2021) around 11 PM. This will be your only dose of this medication. The other one is a medication known as Keflex. You should take this tonight around 11 PM and then every 8 hours thereafter until you run out. Take all medication as prescribed even if you feel 100% better. You were prescribed an antiviral medication called valacyclovir for your shingles outbreak. You should take your first dose of this at 3 PM today (02/23/2021) and then every 8 hours until you run out. Should symptoms return or worsen contact your primary care provider or return the emergency room. - Discharge Plan *PRESCRIPTION DRUG MONITORING PROGRAM REVIEWED*: Not Applicable *COPY OF PRESCRIPTION DRUG MONITORING REPORT IN PATIENT EDISON: Not Applicable Prescriptions/Med Rec: Azithromycin 500 mg PO DAILY #1 tablet cephALEXin [Keflex] 500 mg PO Q8H #7 cap Levothyroxine 175 mcg PO ACBREAKFAST #20 tab Magnesium Oxide 400 mg PO DAILY #3 tablet Gabapentin [Neurontin] 100 mg PO BID #30 cap Nicotine [Nicotine Patch] 21 mg TD DAILY #28 patch Acetaminophen/oxyCODONE [Percocet 325-5 MG] 1 tab PO Q6H PRN #20 tablet PRN Reason: Pain (Severe 7-10) Acetaminophen [Tylenol] 650 mg PO Q4H PRN #20 tablet PRN Reason: Pain (Mild 1-3)/fever valACYclovir [Valtrex] 1,000 mg PO TID #15 tab Tobacco Cessation Medication: Prescription Given Home Medications: Home Meds Pantoprazole Sodium [Protonix] 20 mg PO DAILY 02/20/21 [History] buPROPion [buPROPion XL] 150 mg PO DAILY 02/20/21 [History] FLUoxetine HCl [Fluoxetine HCl] 20 mg PO DAILY 02/21/21 [History] Acetaminophen [Tylenol] 650 mg PO Q4H PRN #20 tablet 02/23/21 [Rx] Acetaminophen/oxyCODONE [Percocet 325-5 MG] 1 tab PO Q6H PRN #20 tablet 02/23/21 [Rx] Azithromycin 500 mg PO DAILY #1 tablet 02/23/21 [Rx] Gabapentin [Neurontin] 100 mg PO BID #30 cap 02/23/21 [Rx] Levothyroxine 175 mcg PO ACBREAKFAST #20 tab 02/23/21 [Rx] Magnesium Oxide 400 mg PO DAILY #3 tablet 02/23/21 [Rx] Nicotine [Nicotine Patch] 21 mg TD DAILY #28 patch 02/23/21 [Rx] cephALEXin [Keflex] 500 mg PO Q8H #7 cap 02/23/21 [Rx] valACYclovir [Valtrex] 1,000 mg PO TID #15 tab 02/23/21 [Rx] Oxygen Therapy Mode: Room Air Patient Handouts: Shingles, [id number], Hypomagnesemia, How to Use an Incentive Spirometer, Steps to Quit Smoking, Community-Acquired Pneumonia, Adult, [id number] Referrals: Brandon Durham MD [Physician] - 02/27/21 10:30 am (Please keep this previously scheduled appointment.) - Discharge Summary/Plan Comment DC Time >30 min.: Yes (45 mins ) - General Info Date of Service: 02/23/21 Admission Dx/Problem (Free Text: Pneumonia Functional Status: Reports: Pain Controlled, Tolerating Diet, Ambulating, Urinating, Incentive Spirometry, Other (Acapella ). Denies: New Symptoms - Review of Systems General: Reports: No Symptoms. Denies: Fever, Weakness, Fatigue, Malaise, Chills HEENT: Reports: No Symptoms. Denies: Headaches, Sore Throat Pulmonary: Reports: No Symptoms. Denies: Shortness of Breath, Cough, Sputum, Wheezing Cardiovascular: Reports: No Symptoms. Denies: Chest Pain, Palpitations, Dyspnea on Exertion, Edema Gastrointestinal: Reports: No Symptoms. Denies: Abdominal Pain, Constipation, Diarrhea, Nausea Genitourinary: Reports: No Symptoms. Denies: Pain Musculoskeletal: Reports: Leg Pain (Right leg and groin secondary to shingles) Skin: Reports: Rash (Right leg and groin secondary to shingles) Neurological: Reports: No Symptoms. Denies: Confusion, Numbness, Pre-Existing Deficit, Tingling, Difficulty Walking, Weakness, Gait Disturbance Psychiatric: Reports: No Symptoms - Patient Data Vitals - Most Recent: Last Vital Signs Temp 98.8 F 02/23/21 07:25 Pulse 95 02/23/21 07:24 Resp 20 02/23/21 07:24 BP 128/76 02/23/21 07:24 Pulse Ox 94 L 02/23/21 07:24 Weight - Most Recent: 273 lb 3.2 oz I&O - Last 24 hours: Intake & Output 02/22/21 02/23/21 02/23/21 22:59 06:59 14:59 Intake Total 650 950 Balance 650 950 Lab Results - Last 24 hrs: Laboratory Results - last 24 hr 02/21/21 02/23/21 02/23/21 Range/Units 10:44 04:50 04:50 WBC 9.09 H (4.23-9.07) K/mm3 RBC 4.51 L (4.63-6.08) M/mm3 Hgb 13.9 (13.7-17.5) gm/dl Hct 44.1 (40.1-51.0) % MCV 97.8 H (79.0-92.2) fl MCH 30.8 (25.7-32.2) pg MCHC 31.5 L (32.2-35.5) g/dl RDW Std Deviation 52.0 H (35.1-43.9) fL Plt Count 137 L (163-337) K/mm3 MPV 11.6 (9.4-12.3) fl Neut % (Auto) 71.5 H (34.0-67.9) % Lymph % (Auto) 12.5 L (21.8-53.1) % [place] % (Auto) 13.3 H (5.3-12.2) % Eos % (Auto) 1.8 (0.8-7.0) Baso % (Auto) 0.6 (0.1-1.2) % Neut # (Auto) 6.50 H (1.78-5.38) K/mm3 Lymph # (Auto) 1.14 L (1.32-3.57) K/mm3 [place] # (Auto) 1.21 H (0.30-0.82) K/mm3 Eos # (Auto) 0.16 (0.04-0.54) K/mm3 Baso # (Auto) 0.05 (0.01-0.08) K/mm3 Manual Slide Review Abnormal smear Sodium 140 (136-145) mEq/L Potassium 4.1 (3.5-5.1) mEq/L Chloride 102 (98-107) mEq/L Carbon Dioxide 28 (21-32) mEq/L Anion Gap 14.1 (5-15) BUN 17 (7-18) mg/dL Creatinine 0.9 (0.7-1.3) mg/dL Est Cr Clr Drug Dosing 111.29 mL/min Estimated GFR (MDRD) > 60 (>60) mL/min BUN/Creatinine Ratio 18.9 H (14-18) Glucose 86 (70-99) mg/dL Calcium 8.2 L (8.5-10.1) mg/dL Magnesium 2.2 (1.8-2.4) mg/dL Total Bilirubin 0.2 (0.2-1.0) mg/dL AST 15 (15-37) U/L ALT 31 (16-63) U/L Alkaline Phosphatase 57 (46-116) U/L C-Reactive Protein 18.0 H* (<1.0) mg/dL Total Protein 7.1 (6.4-8.2) g/dl Albumin 2.9 L (3.4-5.0) g/dl Globulin 4.2 gm/dL Albumin/Globulin Ratio 0.7 L (1-2) Procalcitonin 2.56 H ng/mL [facility] Results - Last 24 hrs: Microbiology 02/20/21 20:30 Aerobic Blood Culture - Preliminary Blood - Venous NO GROWTH AFTER 2 DAYS Anaerobic Blood Culture - Preliminary NO GROWTH AFTER 2 DAYS 02/20/21 20:35 Aerobic Blood Culture - Preliminary Blood - Venous - Lab Draw NO GROWTH AFTER 2 DAYS Anaerobic Blood Culture - Preliminary NO GROWTH AFTER 2 DAYS Med Orders - Current: Current Medications Acetaminophen (Acetaminophen 325 Mg Tab) 650 mg PO Q4H PRN PRN Reason: Pain (Mild 1-3)/fever Last Admin: 02/22/21 19:23 Dose: 650 mg Documented by: Albuterol/Ipratropium (Albuterol/Ipratropium 3.0-0.5 Mg/3 Ml Neb Soln) 3 ml NEB Q4H PRN PRN Reason: Shortness Of Breath/wheezing Bupropion HCl (Bupropion 150 Mg Tab.Er) 150 mg PO DAILY [facility] Last Admin: 02/23/21 08:06 Dose: 150 mg Documented by: Enoxaparin Sodium (Enoxaparin 40 Mg/0.4 Ml Syringe) 40 mg SUBCUT DAILY [facility] Last Admin: 02/23/21 08:07 Dose: 40 mg Documented by: Fluoxetine HCl (Fluoxetine 20 Mg Cap) 20 mg PO DAILY [facility] Last Admin: 02/23/21 08:05 Dose: 20 mg Documented by: Gabapentin (Gabapentin 100 Mg Cap) 100 mg PO BID [facility] Last Admin: 02/23/21 08:07 Dose: 100 mg Documented by: Azithromycin 500 mg/ Sodium (Chloride) 250 mls @ 250 mls/hr IV Q24H [facility] Last Admin: 02/22/21 23:30 Dose: 250 mls/hr Documented by: Ceftriaxone Sodium 2 gm/ (Sodium Chloride) 100 mls @ 200 mls/hr IV Q24H [facility] Last Admin: 02/22/21 23:26 Dose: 200 mls/hr Documented by: Ketorolac Tromethamine (Ketorolac 30 Mg/Ml Sdv) 30 mg IVPUSH Q6H PRN PRN Reason: Pain (moderate 4-6) Last Admin: 02/22/21 20:45 Dose: 30 mg Documented by: Levothyroxine Sodium (Levothyroxine 200 Mcg Tab) 200 mcg PO ACBREAKFAST [facility] Last Admin: 02/23/21 06:25 Dose: 200 mcg Documented by: Magnesium Oxide (Magnesium Oxide 400 Mg Tab) 400 mg PO DAILY [facility] Miscellaneous Information (Remove Nicotine Patch) 1 ea TRDERM DAILY [facility] Last Admin: 02/23/21 08:24 Dose: Not Given Documented by: Nicotine (Nicotine 21 Mg/24 Hr Patch) 21 mg TRDERM DAILY [facility] Last Admin: 02/23/21 08:08 Dose: Not Given Documented by: Ondansetron HCl (Ondansetron 4 Mg/2 Ml Sdv) 4 mg IV Q6H PRN PRN Reason: Nausea/Vomiting Oxycodone/Acetaminophen (Acetaminophen/Oxycodone 325-5 Mg Tab) 1 - 2 tab PO Q4H PRN PRN Reason: Pain (severe 7-10) Last Admin: 02/23/21 06:25 Dose: 2 tab Documented by: Pantoprazole Sodium (Pantoprazole 40 Mg Tab.Cr) 20 mg PO DAILY [facility] Last Admin: 02/23/21 08:04 Dose: 20 mg Documented by: Sodium Chloride (Sodium Chloride 0.9% 10 Ml Syringe) 10 ml FLUSH ASDIRECTED PRN PRN Reason: Keep Vein Open Last Admin: 02/20/21 20:38 Dose: 10 ml Documented by: Valacyclovir HCl (Valacyclovir 1,000 Mg Tab) 1,000 mg PO TID [facility] Stop: 02/28/21 15:01 Last Admin: 02/23/21 08:06 Dose: 1,000 mg Documented by: Discontinued Medications Acetaminophen (Acetaminophen 325 Mg Tab) 975 mg PO NOW ONE Stop: 02/21/21 06:54 Last Admin: 02/21/21 06:58 Dose: 975 mg Documented by: Hydrocodone Bitart/Acetaminophen (Acetaminophen/Hydrocodone 325-5 Mg Tab) 1 tab PO Q4H PRN PRN Reason: Pain (moderate 4-6) Last Admin: 02/21/21 12:08 Dose: 1 tab Documented by: Hydrocodone Bitart/Acetaminophen (Acetaminophen/Hydrocodone 325-5 Mg Tab) 1 - 2 tab PO Q4H PRN PRN Reason: Pain (moderate 4-6) Last Admin: 02/22/21 04:42 Dose: 1 tab Documented by: Sodium Chloride (Normal Saline) 1,000 mls @ 999 mls/hr IV BOLUS ONE; Protocol Stop: 02/20/21 21:18 Last Admin: 02/20/21 20:38 Dose: 999 mls/hr Documented by: Magnesium Sulfate (Magnesium Sulfate In Water 2 Gm/50 Ml) 2 gm in 50 mls @ 25 mls/hr IV ONETIME ONE Stop: 02/21/21 00:23 Last Admin: 02/20/21 22:36 Dose: 25 mls/hr Documented by: Ceftriaxone Sodium 2 gm/ (Sodium Chloride) 100 mls @ 200 mls/hr IV ONETIME STA Stop: 02/20/21 23:31 Last Admin: 02/21/21 00:23 Dose: 200 mls/hr Documented by: Azithromycin 500 mg/ Sodium (Chloride) 250 mls @ 250 mls/hr IV ONETIME STA Stop: 02/21/21 00:03 Last Admin: 02/20/21 23:14 Dose: 250 mls/hr Documented by: Sodium Chloride (Normal Saline) 1,000 mls @ 999 mls/hr IV ONETIME ONE Stop: 02/21/21 00:40 Last Admin: 02/21/21 00:23 Dose: 999 mls/hr Documented by: Magnesium Sulfate (Magnesium Sulfate In Water 2 Gm/50 Ml) 2 gm in 50 mls @ 25 mls/hr IV ONETIME ONE Stop: 02/22/21 10:59 Last Admin: 02/22/21 09:31 Dose: 25 mls/hr Documented by: Levothyroxine Sodium (Levothyroxine 75 Mcg Tab) 75 mcg PO ACBRK [facility] Levothyroxine Sodium (Levothyroxine 100 Mcg Tab) 100 mcg PO ACBRK [facility] - Exam Quality Assessment: Reports: DVT Prophylaxis. Denies: Supplemental Oxygen, Urine Catheter General: Reports: Alert, Oriented, Cooperative, No Acute Distress HEENT: Reports: Pupils Equal, Pupils Reactive, Mucous Membr. Moist/[place] Neck: Reports: Supple, Trachea Midline Lungs: Reports: Clear to Auscultation, Normal Respiratory Effort Cardiovascular: Reports: Regular Rate, Regular Rhythm GI/Abdominal Exam: Normal Bowel Sounds, Soft, Non-Tender, No Distention (Male) Exam: Deferred Rectal (Males) Exam: Deferred Back Exam: Reports: Normal Inspection, Full Range of Motion Extremities: Normal Inspection, Normal Range of Motion, Non-Tender, No Pedal Edema, Normal Capillary Refill, Leg Pain (Right leg and groin), Increased Warmth, Redness (Rash on anterior aspect of right lower leg. No vesicles noted on this area. Rash on right side of groin with vesicles noted.) Skin: Reports: Warm, Dry, Intact, Rash (As noted above) Neurological: Reports: No New Focal Deficit Psy/Mental Status: Reports: Alert, Normal Affect, Normal Mood
[2021-02-23] MEDS ORDERED: Magnesium Oxide 400 MG Tab PO SCH (09:00)
== END 2021-02-23 10:22 | disposition home or self-care (01) | DRG 193 ==
LOC: JD.ED 19:20 → JD.MS 02-21 08:35
PROVIDERS: ADMIT Internal Medicine; ATTEND Internal Medicine
DX: J18.9 Pneumonia, unspecified organism (principal); J96.01 Acute respiratory failure with hypoxia; R65.10 Systemic inflammatory response syndrome (SIRS) of non-infectious origin without acute organ dysfunction; Z68.41 Body mass index [BMI] 40.0-44.9, adult; Z20.822 Contact with and (suspected) exposure to COVID-19; G47.33 Obstructive sleep apnea (adult) (pediatric); K21.9 Gastro-esophageal reflux disease without esophagitis; K44.9 Diaphragmatic hernia without obstruction or gangrene; E03.9 Hypothyroidism, unspecified; F17.210 Nicotine dependence, cigarettes, uncomplicated; E83.42 Hypomagnesemia; J30.9 Allergic rhinitis, unspecified; E66.01 Morbid (severe) obesity due to excess calories; Z87.09 Personal history of other diseases of the respiratory system; Z91.09 Other allergy status, other than to drugs and biological substances; Z98.890 Other specified postprocedural states; Z79.899 Other long term (current) drug therapy; R21 Rash and other nonspecific skin eruption
CPT/HCPCS: 0240U; 36415; 36600; 71045; 71045-26; 71250; 71250-26; 80053; 81003; 82803; 83605; 83735; 83880; 84145; 84443; 84484; 85007; 85025; 85027; 85379; 85610; 85730; 86140; 86738; 87040; 93005; 93010; 94667; 94668; 94761; 96365; 96367; 99222; 99233; 99239; 99284; 99285-25; A9270-GY; G0433; J0456; J0696; J1650; J1885; J3475; J7030; J7050

== ENCOUNTER 2021-03-28 07:09 | Day surgery (SDC) | payer OTHER ==
--- NOTE | 2021-03-26 13:01 | PCM.PREANE ---
Preanesthetic Assessment - Procedure Proposed Procedure: Excision of Multiple soft tissue masses on back - Anesthesia/Transfusion/Family Hx Anesthesia History: Prior Anesthesia Without Reaction Family History of Anesthesia Reaction: No Transfusion History: No Prior Transfusion(s) Intubation History: Unknown - Review of Systems General: No Symptoms Pulmonary: No Symptoms (smoker:1ppd times 15 years(quit 5 weeks ago)/ETOH: weekends 4-5 beers. COPD, Hypoxia, CARLO-CPAP, Bronchopneumonia/History of hyprcapnia/ ARDS-hospitalized in [place](normal individual sat's= 91%)), Cough Cardiovascular: No Symptoms, Dyspnea on Exertion Gastrointestinal: No Symptoms (GERD-asymptomatic/controlled/hiatal hernia/gastroparesis/history of Tala fundoplication) Neurological: No Symptoms Other: Reports: Easy Bruising, Thyroid Problems (hypothyroid), Sinus Problem (seasonal allergies) - Physical Assessment NPO Status Date: 03/27/21 NPO Status Time: 19:30 Vital Signs: HR: 91 SAT: 91% TEMP: 97.3 B/P: 104/76 RESP:20 Height: 1.75 m Weight: 125.5 kg ASA Class: 3 Mental Status: Alert & Oriented x3 Airway Class: Mallampati = 3 Dentition: Reports: Normal Dentition (bottom retainer), Caries Thyro-Mental Finger Breadths: 3 Mouth Opening Finger Breadths: 3 ROM/Head Extension: Full Lungs: Clear to Auscultation, Normal Respiratory Effort, Decreased Breath Sounds Cardiovascular: Regular Rate, Regular Rhythm, No Murmurs - Lab Values: All labs reviewed and noted and within acceptable ranges to proceed with scheduled procedure. - Imaging/EKG Impressions: EKG: ST rate =105 CXR: increased density left base (atelectasis vs pneumonia) 02/2021 - Allergies Allergies/Adverse Reactions: Allergies Allergy/AdvReac Type Severity Reaction Status Date / Time No Known Allergies Allergy Verified 03/27/21 12:51 - Anesthesia Plan Pre-Op Medication Ordered: None, Other (albuterol nebulizer in preop area) - Acknowledgements Anesthesia Type Planned: General Anesthesia, MAC Pt an Appropriate Candidate for the Planned Anesthesia: Yes Alternatives and Risks of Anesthesia Discussed w Pt/Guardian: Yes Pt/Guardian Understands and Agrees with Anesthesia Plan: Yes PreAnesthesia Questionnaire HEENT History: Reports: Allergic Rhinitis Other HEENT History: requires nasal surgery. Respiratory History: Reports: Pneumonia, Recurrent, Sleep Apnea Other Respiratory History: ARDS 2019 Gastrointestinal History: Reports: GERD, Hiatal Hernia Endocrine/Metabolic History: Reports: Hypothyroidism, Obesity/BMI 30+ Hematologic History: Reports: Anemia, Iron Deficiency Other Hematologic History: tx iron transfusions Dermatologic History: Reports: Other (See Below) Other Dermatologic History: shingles - Infectious Disease History Infectious Disease History: Reports: Chicken Pox, Shingles - Past Surgical History HEENT Surgical History: Reports: Naso-Sinus Surgery, Oral Surgery GI Surgical History: Reports: Colonoscopy, EGD, Hernia, Abdominal, Other (See Below) Musculoskeletal Surgical History: Reports: Other (See Below) - HOME MEDS Home Medications: Home Meds Pantoprazole Sodium [Protonix] 20 mg PO DAILY 02/20/21 [History] buPROPion [buPROPion XL] 150 mg PO DAILY 02/20/21 [History] FLUoxetine HCl [Fluoxetine HCl] 20 mg PO DAILY 02/21/21 [History] Gabapentin [Neurontin] 100 mg PO BID #30 cap 02/23/21 [Rx] Levothyroxine 175 mcg PO ACBREAKFAST #20 tab 02/23/21 [Rx] - CURRENT (IN HOUSE) MEDS Current Meds: Current Medications Lactated Ringer's (Ringers, Lactated) 1,000 mls @ 125 mls/hr IV ASDIRECTED ANALIA Lidocaine/Sodium Bicarbonate (Lidocaine 1%/Sod Bicarbonate In Ns 8.4% 1 Ml Syringe) 0.25 ml IDERM ONETIME PRN PRN Reason: Prior to IV Start Sodium Chloride (Sodium Chloride 0.9% 10 Ml Syringe) 10 ml FLUSH ASDIRECTED PRN PRN Reason: Keep Vein Open
[~2021-03-28 07:09] MED LIST: Lactated Ringers 1,000 ML IV SCH; Lidocaine 1%/Sod Bicarbonate in NS 8.4% 1 ML Syringe IDERM PRN; Sodium Chloride 0.9% 10 ML Syringe FLUSH PRN
[2021-03-28] MEDS ORDERED: Lidocaine 1% with EPINEPHrine 1:100,000 10 ML MDV ONE ×3 (07:13→08:15)
[2021-03-28] MEDS ORDERED: Bupivacaine 0.5%/EPINEPHrine 1:200,000 50 ML MDV ONE (07:13)
[2021-03-28] MEDS ORDERED: Bacitracin Oint 15 GM Tube ONE (07:13)
[2021-03-28] MEDS ORDERED: ceFAZolin 1 GM Vial ONE (07:14)
[2021-03-28] MEDS ORDERED: fentaNYL 100 MCG/2 ML SDV ONE (07:14)
[2021-03-28] MEDS ORDERED: Lidocaine 1% 4 ML ONE (07:14)
[2021-03-28] MEDS ORDERED: Lactated Ringers 1,000 ML ONE (07:14)
[2021-03-28] MEDS ORDERED: Ketamine 500 mg/10 ML MDV ONE (07:14)
[2021-03-28] MEDS ORDERED: Midazolam 1 MG/ML 2 ML SDV ONE ×2 (07:14→09:06)
[2021-03-28] MEDS ORDERED: Propofol 200 MG/20 ML SDV ONE ×2 (07:15→09:09)
[2021-03-28] MEDS ORDERED: Albuterol 0.083% 2.5 MG/3 ML Neb Soln NEB ONE (08:15)
[2021-03-28] MEDS ORDERED: HYDROmorphone 0.5 MG/0.5 ML Syringe ONE ×3 (08:21→08:40)
[2021-03-28] MEDS ORDERED: Albuterol 0.083% 2.5 MG/3 ML Neb Soln NEB PRN (08:47)
--- NOTE | 2021-03-28 10:33 | PCM48HPAN ---
Post Anesthesia Note - EVALUATION WITHIN 48HRS OF ANESTHETIC Vital Signs in Normal Range: Yes Patient Participated in Evaluation: Yes Respiratory Function Stable: Yes Airway Patent: Yes Cardiovascular Function Stable: Yes Hydration Status Stable: Yes Pain Control Satisfactory: Yes Nausea and Vomiting Control Satisfactory: Yes Mental Status Recovered: Yes Vital Signs: Last Vital Signs Temp 98.7 03/28/21 1026 Pulse 85 03/28/21 1026 Resp 13 03/28/21 1026 BP 127/59 03/28/21 1026 Pulse Ox 90 03/28/21 1026
--- NOTE | 2021-03-28 10:34 | PCM.PRNOTE ---
- Free Text/Narrative Note: Operative Note Date of Surgery/Procedure: 03/28/21 Operative Procedure(s): excision of multiple back masses Findings: 1. 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 Upper back mass Pre Op Diagnosis: multiple back masses Post-Op Diagnosis: same Anesthesia Technique: Local, MAC Primary Surgeon: Haily Hunter Anesthesia Provider: Roselia Andre Pathology: Upper back mass Fluid Replacement, Intraop: 1,100 Output, Urine Amount: 0 EBL in mLs: 20 Indication: The patient is a 36 y/o gentleman with multiple back subcutaneous masses which have appeared recently and/or are growing. He had 13 masses identified on the back. We discussed excision with local and MAC due to the large number of masses. Discussed risks of bleeding and infection. His written consent was obtained. Description of the procedure: The patient was brought back to the OR and placed in right lateral decubitus position. His CPAP was adjusted and he had successful induction of MAC anesthesia. He was then prepped and draped in standard surgical fashion. The areas on the left lower back were anesthetized. A 5cm incision was made on the left posterior hip and a 4.5cm x2.9cm fatty mass was removed. Two 4cm incision was made on the left lower back and a 3.4x2.3cm and 4.9x3.3cm masses were removed. Three additional 3.5cm incisions were made nearby in the left lower back and a 2.9x1.9cm, 3.9x1.8cm, and 2.6x1.2cm fatty masses were removed. A 2cm incision was made nearby with excision of a 1.8x1.3cm fatty mass. More laterally the patient had a palpable subcutaneous mass and a 5cm incision was made in the left flank skin with excision of a 6.8x2.9cm fatty mass. On the right lower back, two 2cm incisions were made with excision of a 1.2x1.4cm and 3.2x2.2cm masses. A 1.7cm incision was made between the previous two n the right lower back with excision of a 2.3x1.9cm fatty mass. On the upper mid right back, a 3cm incision was made with removal of a 3.9x2.5cm fatty mass. On the more superior midline back, a 3cm incision was made to removed a palpable mass, and the dense tissue was removed in piecemeal fashion and sent for pathology, total excised tissue was 2cm x1.5cm. The Bovie was used for hemostasis, and the skin re-approximated at each site in two layers with underlying 3-0 Vicryl and overlying 4-0 Monocryl. The incision were then covered with Dermabond. He was awakened from anesthesia and transferred to the recovery area in stable condition. Complications: none apparent Condition: Good Haily Hunter MD General surgery
[2021-03-28 11:29] VITALS: BP 118/90; PULSE 82
== END 2021-03-28 11:08 | disposition home or self-care (01) ==
LOC: JD.SDS 07:09
PROVIDERS: ATTEND Surgery
DX: D23.5 Other benign neoplasm of skin of trunk (principal); E03.9 Hypothyroidism, unspecified; E66.9 Obesity, unspecified; G47.33 Obstructive sleep apnea (adult) (pediatric); J44.9 Chronic obstructive pulmonary disease, unspecified; Z01.812 Encounter for preprocedural laboratory examination; Z20.822 Contact with and (suspected) exposure to COVID-19; Z98.890 Other specified postprocedural states; Z79.899 Other long term (current) drug therapy; Z79.890 Hormone replacement therapy; Z68.41 Body mass index [BMI] 40.0-44.9, adult; Z91.048 Other nonmedicinal substance allergy status; Z87.891 Personal history of nicotine dependence
CPT/HCPCS: 21930; 21931; 87635; J1170; J2250; J2704; J3490; J7120; 00300; A9270-GY; J0690; J3010; U0002

== ENCOUNTER 2021-09-30 09:05 | Emergency (ER) | payer OTHER ==
[2021-09-30] MEDS ORDERED: Sodium Chloride 0.9% 10 ML Syringe FLUSH PRN (09:29)
[2021-09-30] MEDS ORDERED: Ondansetron 4 MG/2 ML SDV IVPUSH ONE (09:29)
[2021-09-30] MEDS ORDERED: Sodium Chloride 0.9% 1,000 ML IV STA (09:29)
[2021-09-30] MEDS ORDERED: HYDROmorphone 1 MG/ML Syringe IVPUSH ONE (09:30)
--- NOTE | 2021-09-30 10:03 | EDM.PDOC ---
ED HPI GENERAL MEDICAL PROBLEM - General Chief Complaint: Abdominal Pain Stated Complaint: abdominal pain Time Seen by Provider: 09/30/21 09:11 Source of Information: Reports: Patient History Limitations: Reports: No Limitations - History of Present Illness INITIAL COMMENTS - FREE TEXT/NARRATIVE: The patient presents with left lower abdominal pain. The patient said this started a few days ago and it has gotten worse. The pain is not constant. It comes and goes but it is more constant now. He has some nausea but no vomiting. He has no fever, chills, cough, chest pain, or shortness of breath. he has no diarrhea. He still has his appendix and gallbladder. He has a history of ARDS in the past. He never had a history of diverticulitis. Onset: Gradual Duration: Day(s): Location: Reports: Abdomen Quality: Reports: Sharp Severity: Moderate Improves with: Reports: None Worsens with: Reports: None Associated Symptoms: Reports: Nausea/Vomiting. Denies: Chest Pain, Cough, Fever/Chills, Headaches, Shortness of Breath - Related Data Allergies Allergy/AdvReac Type Severity Reaction Status Date / Time No Known Allergies Allergy Verified 03/28/21 07:40 Home Meds: Home Meds Pantoprazole Sodium [Protonix] 20 mg PO DAILY 02/20/21 [History] buPROPion [buPROPion XL] 150 mg PO DAILY 02/20/21 [History] FLUoxetine HCl [Fluoxetine HCl] 20 mg PO DAILY 02/21/21 [History] Levothyroxine 175 mcg PO ACBREAKFAST #20 tab 02/23/21 [Rx] Albuterol Sulfate [Albuterol Sulfate HFA] 1 puff INH ASDIRECTED PRN 03/28/21 [History] Cetirizine [ZyrTEC] 1 tab PO DAILY PRN 03/28/21 [History] Docusate Sodium [Colace] 100 mg PO BID #60 capsule 03/28/21 [Rx] Ibuprofen 600 mg PO Q6HR PRN #30 tablet 03/28/21 [Rx] traMADol [Ultram] 50 mg PO Q4H PRN #15 tab 03/28/21 [Rx] Amoxicillin/Potassium Clav [Augmentin 875-125 Tablet] 1 each PO BID #20 tablet 09/30/21 [Rx] Hydrocodone/Acetaminophen [Hydrocodone-Acetamin 5-325 mg] 1 - 2 each PO Q6H PRN #15 tablet 09/30/21 [Rx] Past Medical History HEENT History: Reports: Allergic Rhinitis Other HEENT History: seasonal allergies Cardiovascular History: Reports: None Respiratory History: Reports: Pneumonia, Recurrent, Sleep Apnea Other Respiratory History: ARDS, bronchopneumonia Gastrointestinal History: Reports: GERD, Hiatal Hernia Genitourinary History: Reports: None RETURN TO [employer] History: Reports: None Musculoskeletal History: Reports: None Neurological History: Reports: None Psychiatric History: Reports: Addiction Endocrine/Metabolic History: Reports: Hypothyroidism, Obesity/BMI 30+ Hematologic History: Reports: Anemia, Iron Deficiency Other Hematologic History: tx iron transfusions Immunologic History: Reports: None Oncologic (Cancer) History: Reports: None Dermatologic History: Reports: Other (See Below) Other Dermatologic History: scalp/neck neoplasms, lipomas - Infectious Disease History Infectious Disease History: Reports: Chicken Pox, Shingles - Past Surgical History Head Surgeries/Procedures: Reports: None HEENT Surgical History: Reports: Adenoidectomy, Naso-Sinus Surgery, Oral Surgery Cardiovascular Surgical History: Reports: None Respiratory Surgical History: Reports: Other (See Below) Other Respiratory Surgeries/Procedures: bronchoscopy GI Surgical History: Reports: Colonoscopy, EGD, Hernia, Abdominal, Tala Fundoplication, Other (See Below) Female Surgical History: Reports: None Male Surgical History: Reports: None Endocrine Surgical History: Reports: None Neurological Surgical History: Reports: None Musculoskeletal Surgical History: Reports: None Oncologic Surgical History: Reports: None Dermatological Surgical History: Reports: None Social & Family History - Caffeine Use Caffeine Use: Reports: Energy Drinks - Living Situation & Occupation Living situation: Reports: , with Spouse Occupation: Employed ([employer]s [employer]) ED ROS GENERAL - Review of Systems Review Of Systems: See Below Constitutional: Reports: No Symptoms HEENT: Reports: No Symptoms Respiratory: Reports: No Symptoms Cardiovascular: Reports: No Symptoms Endocrine: Reports: No Symptoms GI/Abdominal: Reports: Abdominal Pain, Nausea. Denies: Diarrhea, Vomiting : Reports: No Symptoms Musculoskeletal: Reports: No Symptoms Skin: Reports: No Symptoms Neurological: Reports: No Symptoms ED EXAM, GI/ABD - Physical Exam Exam: See Below Exam Limited By: No Limitations General Appearance: Alert, No Apparent Distress Ears: Normal External Exam Nose: Normal Inspection Head: Atraumatic, Normocephalic Neck: Normal Inspection Respiratory/Chest: No Respiratory Distress, Lungs Clear, Normal Breath Sounds Cardiovascular: Regular Rate, Rhythm, No Edema, No Murmur GI/Abdominal Exam: Normal Bowel Sounds, Soft, No Organomegaly, Tender (Moderate tenderness to the lower abdomen with more to the left lower abdomen) Course - Orders/Labs/Meds Orders: Active Orders 24 hr Category Date Time Status Peripheral IV Care [RC] . DIRECTED Care 09/30/21 09:29 Active Sodium Chloride 0.9% [Saline Flush] Med 09/30/21 09:29 Active 10 ml FLUSH ASDIRECTED PRN ED Antiemetic Medication Reflex [OM.PC] Stat Oth 09/30/21 09:29 Ordered Peripheral IV Insertion Adult [OM.PC] Stat Ot 09/30/21 09:29 Ordered Medication Orders Sodium Chloride (Sodium Chloride 0.9% 10 Ml Syringe) 10 ml FLUSH ASDIRECTED PRN PRN Reason: Keep Vein Open Last Admin: 09/30/21 09:54 Dose: 10 ml Documented by: MJ Labs: Laboratory Tests 09/30/21 09/30/21 09/30/21 Range/Units 09:30 09:30 10:45 WBC 11.14 H (4.23-9.07) K/mm3 RBC 4.61 L (4.63-6.08) M/mm3 Hgb 14.0 (13.7-17.5) gm/dl Hct 43.8 (40.1-51.0) % MCV 95.0 H (79.0-92.2) fl MCH 30.4 (25.7-32.2) pg MCHC 32.0 L (32.2-35.5) g/dl RDW Std Deviation 47.5 H (35.1-43.9) fL Plt Count 180 (163-337) K/mm3 MPV 10.6 (9.4-12.3) fl Neut % (Auto) 76.2 H (34.0-67.9) % Lymph % (Auto) 11.8 L (21.8-53.1) % Tillman % (Auto) 10.1 (5.3-12.2) % Eos % (Auto) 1.2 (0.8-7.0) Baso % (Auto) 0.4 (0.1-1.2) % Neut # (Auto) 8.49 H (1.78-5.38) K/mm3 Lymph # (Auto) 1.31 L (1.32-3.57) K/mm3 Tillman # (Auto) 1.13 H (0.30-0.82) K/mm3 Eos # (Auto) 0.13 (0.04-0.54) K/mm3 Baso # (Auto) 0.05 (0.01-0.08) K/mm3 Sodium 137 (136-145) mEq/L Potassium 4.4 (3.5-5.1) mEq/L Chloride 102 (98-107) mEq/L Carbon Dioxide 27 (21-32) mEq/L Anion Gap 12.4 (5-15) BUN 13 (7-18) mg/dL Creatinine 0.9 (0.7-1.3) mg/dL Est Cr Clr Drug Dosing TNP Estimated GFR (MDRD) > 60 (>60) mL/min BUN/Creatinine Ratio 14.4 (14-18) Glucose 112 H (70-99) mg/dL Calcium 9.5 (8.5-10.1) mg/dL Total Bilirubin 0.4 (0.2-1.0) mg/dL AST 32 (15-37) U/L ALT 59 (16-63) U/L Alkaline Phosphatase 57 (46-116) U/L Total Protein 7.4 (6.4-8.2) g/dl Albumin 3.9 (3.4-5.0) g/dl Globulin 3.5 gm/dL Albumin/Globulin Ratio 1.1 (1-2) Lipase 74 (73-393) U/L Urine Color Yellow (Yellow) Urine Appearance Clear (Clear) Urine pH 7.0 (5.0-8.0) Ur Specific [place] 1.025 (1.005-1.030) Urine Protein Negative (Negative) Urine Glucose (UA) Negative (Negative) Urine Ketones Negative (Negative) Urine Occult Blood Negative (Negative) Urine Nitrite Negative (Negative) Urine Bilirubin Negative (Negative) Urine Urobilinogen 0.2 (0.2-1.0) Ur Leukocyte Esterase Negative (Negative) Urine RBC Not seen (0-5) /hpf Urine WBC Not seen (0-5) /hpf Ur Epithelial Cells Not seen (0-5) /hpf Urine Bacteria Rare (FEW) /hpf Urine Mucus Moderate H (FEW) /hpf Meds: Medications Generic Name Dose Route Start Last Admin Trade Name Jorge Luis PRN Reason Stop Dose Admin Sodium Chloride 10 ml 09/30/21 09:29 09/30/21 09:54 Sodium Chloride 0.9% 10 Ml Syringe FLUSH 10 ml ASDIRECTED PRN Administration Keep Vein Open Discontinued Medications Generic Name Dose Route Start Last Admin Trade Name Jorge Luis PRN Reason Stop Dose Admin Diatrizoate Meglum/Diatrizoate Sod 90 ml 09/30/21 10:21 09/30/21 11:13 Diatrizoate Meglumine/Diatrizoate Sodium 37% 120 Ml Bottle PO 09/30/21 10:22 90 ml ONETIME ONE Administration Hydromorphone HCl 1 mg 09/30/21 09:30 09/30/21 09:52 Hydromorphone 1 Mg/Ml Syringe IVPUSH 09/30/21 09:31 1 mg ONETIME ONE Administration Hydromorphone HCl 0.5 mg 09/30/21 11:41 Hydromorphone 0.5 Mg/0.5 Ml Syringe IVPUSH 09/30/21 11:42 ONETIME ONE Sodium Chloride 1,000 mls @ 1,000 mls/hr 09/30/21 09:29 09/30/21 09:52 Normal Saline IV 09/30/21 10:28 1,000 mls/hr .BOLUS STA Administration Iopamidol 100 ml 09/30/21 10:21 09/30/21 11:13 Iopamidol 612 Mg/Ml 100 Ml Bottle IVPUSH 09/30/21 10:22 100 ml ONETIME ONE Administration Iopamidol 50 ml 09/30/21 10:21 09/30/21 11:13 Iopamidol 612 Mg/Ml 50 Ml Sdv IVPUSH 09/30/21 10:22 25 ml ONETIME ONE Administration Ondansetron HCl 4 mg 09/30/21 09:29 09/30/21 09:54 Ondansetron 4 Mg/2 Ml Sdv IVPUSH 09/30/21 09:30 4 mg ONETIME ONE Administration - Re-Assessments/Exams Free Text/Narrative Re-Assessment/Exam: 09/30/21 10:02 I ordered an IV NS 1L bolus, zofran 4mg IV, dilaudid 1mg IV, labs, UA and a CT of his abdomen and pelvis with IV and oral contrast. 09/30/21 11:43 His WBC is elevated at 11.14. His CMP looks good. His lipase is normal. His UA shows no UTI. His CT shows diverticulitis within the sigmoid colon. No other acute finding is seen on CT study of the abdomen and pelvis. He is having more pain so I ordered dilaudid 0.5mg IV. I will get him on some augmentin and some thing for pain. Departure - Departure Time of Disposition: 11:45 Disposition: Home, Self-Care 01 Condition: Good Clinical Impression: Diverticulitis - Discharge Information *PRESCRIPTION DRUG MONITORING PROGRAM REVIEWED*: Not Applicable *COPY OF PRESCRIPTION DRUG MONITORING REPORT IN PATIENT EDISON: Not Applicable Prescriptions: Amoxicillin/Potassium Clav [Augmentin 875-125 Tablet] 1 each PO BID #20 tablet Hydrocodone/Acetaminophen [Hydrocodone-Acetamin 5-325 mg] 1 - 2 each PO Q6H PRN #15 tablet PRN Reason: Pain Referrals: Brandon Durham MD [Primary Care Provider] - Forms: ED Department Discharge Additional Instructions: Drink plenty of fluids. Take the augmentin 2 times per day for 10 days. Take tylenol or motrin for pain. If that does not help, try the hydrocodone. Follow up with your provider within a week. Please return if you are worse. - My Orders Last 24 Hours: My Active Orders 09/30/21 09:29 Peripheral IV Care [RC] . DIRECTED Sodium Chloride 0.9% [Saline Flush] 10 ml FLUSH ASDIRECTED PRN ED Antiemetic Medication Reflex [OM.PC] Stat Peripheral IV Insertion Adult [OM.PC] Stat - Assessment/Plan Last 24 Hours: My Active Orders 09/30/21 09:29 Peripheral IV Care [RC] . DIRECTED Sodium Chloride 0.9% [Saline Flush] 10 ml FLUSH ASDIRECTED PRN ED Antiemetic Medication Reflex [OM.PC] Stat Peripheral IV Insertion Adult [OM.PC] Stat
[2021-09-30] MEDS ORDERED: Iopamidol 612 MG/ML 50 ML SDV IVPUSH ONE (10:21)
[2021-09-30] MEDS ORDERED: Iopamidol 612 MG/ML 100 ML Bottle IVPUSH ONE (10:21)
[2021-09-30] MEDS ORDERED: Diatrizoate Meglumine/Diatrizoate Sodium 37% 120 ML Bottle PO ONE (10:21)
--- NOTE | 2021-09-30 11:18 | CT ---
CT abdomen and pelvis Technique: Multiple axial sections were obtained from above the dome of the diaphragm inferiorly through the pubic symphysis. Intravenous and oral contrast was utilized. Reconstructed coronal and sagittal images were obtained. Delayed images were also obtained through the bladder. Comparison: Prior CT abdomen and pelvis exam of 01/28/19. Findings: Inflammatory change is seen around the sigmoid colon. This occurs in an area of diverticulosis and is compatible with diverticulitis. Other findings: Slight atelectasis is seen within the inferior lungs. Liver shows no focal parenchymal abnormality. Spleen appears within normal limits. Adrenal glands show no nodule. Pancreas shows no discrete abnormality. Kidneys show symmetric contrast enhancement with no hydronephrosis or mass being seen. Abdominal aorta shows no aneurysm. No retroperitoneal adenopathy or mesenteric abnormalities are seen. Appendix is seen which is normal in size. No pelvic mass or adenopathy is seen. Delayed images shows contrast within the distal ureters and within the bladder. Bone window settings were reviewed. No acute osseous finding is appreciated. Impression: 1. Diverticulitis within the sigmoid colon. 2. No other acute finding is seen on CT study of the abdomen and pelvis. Diagnostic code #3
[2021-09-30] MEDS ORDERED: HYDROmorphone 0.5 MG/0.5 ML Syringe IVPUSH ONE (11:41)
[2021-09-30 12:32] VITALS: BP 135/88
[2021-09-30 12:33] VITALS: PULSE 86
== END 2021-09-30 12:25 | disposition home or self-care (01) ==
LOC: JD.ED 09:05
DX: K57.32 Diverticulitis of large intestine without perforation or abscess without bleeding (principal); K21.9 Gastro-esophageal reflux disease without esophagitis; E03.9 Hypothyroidism, unspecified; E66.9 Obesity, unspecified; Z68.1 Body mass index [BMI] 19.9 or less, adult; Z79.899 Other long term (current) drug therapy
CPT/HCPCS: 36415; 74177; 80053; 81001; 83690; 85025; 96374; 96375; 96376; 99284; J1170; J2405; J7030; Q9963; Q9967

== ENCOUNTER 2022-10-27 09:32 | Emergency (ER) | payer OTHER ==
[2022-10-27 09:43] VITALS: BP 135/98; PULSE 90
[2022-10-27] MEDS ORDERED: Sodium Chloride 0.9% 10 ML Syringe FLUSH PRN (09:53)
[2022-10-27] MEDS ORDERED: HYDROmorphone 0.5 MG/0.5 ML Syringe IVPUSH ONE (09:54)
[2022-10-27] MEDS ORDERED: Sodium Chloride 0.9% 1,000 ML IV SCH (10:00)
[2022-10-27] MEDS ORDERED: Sodium Chloride 0.9% 10 ML Syringe FLUSH ONE (10:47)
[2022-10-27] MEDS ORDERED: Iopamidol 612 MG/ML 100 ML Bottle IVPUSH ONE (10:47)
[2022-10-27] MEDS ORDERED: Iopamidol 612 MG/ML 50 ML SDV IVPUSH ONE (10:47)
[2022-10-27] MEDS ORDERED: HYDROmorphone 1 MG/ML Syringe IVPUSH ONE (11:16)
== END 2022-10-27 12:24 | disposition home or self-care (01) ==
LOC: JD.ED 09:32
DX: K57.32 Diverticulitis of large intestine without perforation or abscess without bleeding (principal); K21.9 Gastro-esophageal reflux disease without esophagitis; E03.9 Hypothyroidism, unspecified; F17.210 Nicotine dependence, cigarettes, uncomplicated; E66.9 Obesity, unspecified; Z68.41 Body mass index [BMI] 40.0-44.9, adult; Z79.899 Other long term (current) drug therapy
CPT/HCPCS: 36415; 74177; 80053; 81001; 83690; 85025; 96361; 96374; 96376; 99284; J1170; J3490; J7030; Q9967